=== PATIENT | female | born 1980 | race Caucasian/White ===

== ENCOUNTER 2016-11-18 21:37 | Inpatient (IN) | payer MEDICARE, OTHER ==
--- NOTE | 2016-11-18 21:41 | PDOC ---
History of Present Illness - General History Source: Patient Exam Limitations: No Limitations - History of Present Illness Initial Comments: 11/18/16 22:25 The patient is a 36 year old female, with significant past medical history of cholecystectomy (11/14/16), GERD, asthma, and tonsillectomy, who presents to the emergency department complaining of nausea, vomiting, and epgiastric/chest pain starting at 11:00am this morning. The patient had a cholecystectomy performed by Dr. Rojas and was discharged 4 days ago. The patient states that chest pain occurred 5 minutes after eating a bowl of cereal this morning. She describes the pain as sharp pressure that is constant, 6/10 in severity, and radiates to her back. The chest pain is exacerbated by lying down. She is experiencing some abdominal pain that she describes as burning. She had multiple episodes of vomiting today and is unable to tolerate any intake including fluids. Her vomiting is food contents and is nbnb. Her first bowel movement was yesterday after taking a laxative and was yellow in color. She did not have a bowel movement today. Denies SOB, cough. Denies fever, chills. Allergies: amoxicillin, penicillin, ibuprofen, guaifenesin Social Hx: No tobacco use. No alcohol use. Denies NSAID abuse, no recreational drug use. Surgeon: Dr. Rojas <Alyson Matamoros - Last Filed: 11/18/16 22:25> <Olegario Davey - Last Filed: 11/19/16 01:09> - General Chief Complaint: Nausea/Vomiting Stated Complaint: NAUSEA/VOMITING Past History <Alyson Matamoros - Last Filed: 11/18/16 22:25> - Past Medical History Asthma: Yes GI Disorders: Yes (GERD) Seizures: Yes (pesudo seizure ) - Family Disease History Family Disease History: Heart Disease: Grandparents (maternal) - Reproductive History (#): 7 Para: 1 Therapeutic (s) & number: Yes (5) - Immunization History Immunization Up to Date: Yes - Psycho/Social/Smoking Cessation Hx Anxiety: No Suicidal Ideation: No Smoking Status: No Smoking History: Never smoked Have you smoked in the past 12 months: No Number of Cigarettes Smoked Daily: 0 Hx Alcohol Use: No Drug/Substance Use Hx: No Substance Use Type: None <Olegario Davey - Last Filed: 11/19/16 01:09> - Past Medical History Allergies/Adverse Reactions: Allergies Allergy/AdvReac Type Severity Reaction Status Date / Time amoxicillin [Amoxicillin] Allergy Swelling Verified 11/13/16 19:08 guaifenesin Allergy Verified 11/13/16 19:08 Penicillins Allergy Verified 11/13/16 19:08 ibuprofen [From Motrin] AdvReac Verified 11/13/16 19:08 Home Medications: Ambulatory Orders Ranitidine [Zantac -] 150 mg PO HS 11/13/16 Oxycodone HCl/Acetaminophen [Percocet 5-325 mg Tablet] 1 tab PO Q4H PRN #30 tablet MDD 6 11/14/16 Review of Systems - Review of Systems Comments:: 11/18/16 22:25 CONSTITUTIONAL: No reported: Fever, Chills, Diaphoresis, Generalized Weakness, Malaise, Loss of Appetite HEENT: No reported: Rhinorrhea, Nasal Congestion, Throat Pain, Throat Swelling, Difficulty Swallowing, Mouth Swelling, Ear Pain, Eye Pain, Visual Changes CARDIOVASCULAR: +chest pain. No reported: Syncope, Palpitations, Irregular Heart Rate, Lightheadedness, Peripheral Edema RESPIRATORY: No reported: Cough, Shortness of Breath, SOB with Exertion, Orthopnea, Wheezing , Stridor, Hemoptysis GASTROINTESTINAL: +nausea, vomiting, abdominal pain. No reported: Abdominal Distension, Diarrhea, Constipation, Melena, Hematochezia GENITOURINARY: No reported: Dysuria, Frequency, Urgency, Hesitancy, Flank Pain, Genital Pain MUSCULOSKELETAL: No reported: Myalgia, Arthralgia, Joint Swelling, Back pain, Neck Pain SKIN: No reported: Rash, Itching, Pallor HEMEATOLOGIC/IMMUNOLOGIC: No reported: Easy Bleeding, Easy Bruising, Lymphadenopathy, Frequent infections ENDOCRINE: No reported: Unexplained Weight Gain, Unexplained Weight Loss, Heat Intolerance , Cold Intolerance NEUROLOGIC: No reported: Headache, Focal Weakness, Paresthesias, Vertigo, Lightheadedness, Unsteady Gait, Seizure, Mental Status Changes, Incontinence PSYCHIATRIC: No reported: Anxiety, Depression <Alyson Matamoros - Last Filed: 11/18/16 22:25> *Physical Exam - Vital Signs Last Vital Signs Temp Pulse Resp BP Pulse Ox 97.6 F 71 16 108/69 100 11/18/16 21:41 11/18/16 21:41 11/18/16 21:41 11/18/16 21:41 11/18/16 21:41 - Physical Exam Comments: 11/18/16 22:26 GENERAL: The patient is awake, alert, and fully oriented, Nontoxic - in no acute distress. HEAD: Normocephalic, atraumatic. EYES: extraocular movements intact, sclera anicteric, conjunctiva clear. ENT: Normal voice, Moist mucous membranes. NECK: Normal range of motion, supple LUNGS: Breath sounds equal, clear to auscultation bilaterally. No wheezes, no rhonchi, no rales. HEART: Regular rate and rhythm, without murmur, rub or gallop. ABDOMEN: mild RUQ and epigastric tenderness, no rebound/guarding, laparoscopy scars are non erythemadous without discharge/induration. EXTREMITIES: Normal range of motion, no edema. No clubbing or cyanosis. No cords , erythema, or tenderness. NEUROLOGICAL: No facial assymetry, Normal speech, moving all 4 extermities spontaneously and symmetrically. PSYCH: Normal mood, normal affect. SKIN: Warm, Dry, normal turgor. <Alyson Matamoros - Last Filed: 11/18/16 22:25> Heart Score/ECG Review - ECG Impressions Comment:: 11/18/16 22:31 Twelve-lead EKG was performed and reviewed by me. There is normal sinus rhythm with a normal rate. Rate of 73 The axis is normal. The intervals are normal. There is normal R wave progression There are no ST or T wave abnormalities. Impression: Normal twelve-lead EKG <Olegario Davey - Last Filed: 11/19/16 01:09> ED Treatment Course - LABORATORY CBC & Chemistry Diagram: 11/18/16 22:21 11/18/16 22:21 - Medications Given in the ED: ED Medications Discontinued Medications Generic Name Dose Route Start Last Admin Trade Name Freq PRN Reason Stop Dose Admin Morphine Sulfate 2 mg 11/18/16 22:05 11/18/16 22:20 Morphine Injection - IVPUSH 11/18/16 22:06 2 mg ONCE ONE Administration Ondansetron HCl 4 mg 11/18/16 22:04 11/18/16 22:20 Zofran Injection IVPB 11/18/16 22:05 4 mg ONCE ONE Administration <Alyson Matamoros - Last Filed: 11/18/16 22:25> - LABORATORY CBC & Chemistry Diagram: 11/18/16 22:21 11/18/16 22:21 <Olegario Davey - Last Filed: 11/19/16 01:09> Medical Decision Making - Medical Decision Making 11/18/16 22:18 36y F hx of gerd, asthma, 5 days post op s/p cholecystectomy presents with burning/pressure like epgiastric pain associated nbnb vomiting without fever/ chills, but pt did note she felt diaphoretic this morning w/o sob, zaidi. on exam the pt appears in no distress, vitals normal, pt did have mild tenderness in the epigastrium and ruq although pt attributes her RUQ tenderness to post op pain. differential includes pancreatitis, bile leak/post op complication, obstruction , gerd, acs will ck cbc, cmp, lipase, ua, uhcg will obtain screening ekg will give pepcid/maalox, fluids, zofran will obtain kub to r/o obstruction consider CT abd to r/o post op complication will d/w dr. Rojas A portion of this note was documented by scribe services under my direction. I have reviewed the details of the note, within reason, and agree with the documentation with the following case summary and management plan written by me 11/18/16 23:25 xray negtive for free air or signs of obstruction labs noted for marked elevation of LFTs will obtain CT abd with IV contrast 11/19/16 00:[address] abd is unremarkable pts pain has improved case d/w dr. Rojas - states that probably low utility to get an US as the patient needs ERCP and GI consultation. will admit to hospitalist service as pt does not have an PMD. 11/19/16 01:[address] Gutierrez agreed with admission and GI consultation for further evaluation of her elated LFTs. pt currently pain free.stable for med/surg. Case discussed in detail with admitting physician including history, physical exam and ancillary studies. Admitting physician has assumed care for the patient, will follow all pending diagnostics and will complete the evaluation and treatment. <Olegario Davey - Last Filed: 11/19/16 01:09> *DC/Admit/Observation/Transfer - Attestations Scribe Attestion: 11/18/16 22:26 Documentation prepared by SUZANNE Mckinney, acting as medical records administrator for Olegario Davey MD. <Alyson Matamoros - Last Filed: 11/18/16 22:25> - Discharge Dispostion Admit: Yes <Olegario Davey - Last Filed: 11/19/16 01:09> Diagnosis at time of Disposition: Elevated liver enzymes Abdominal pain Qualifiers: Abdominal location: epigastric Qualified Code(s): R10.13 - Epigastric pain - Discharge Dispostion Condition at time of disposition: Stable
[2016-11-18] MEDS ORDERED: SODIUM CHLORIDE 1,000 ML IV ONE (22:04)
[2016-11-18] MEDS ORDERED: ONDANSETRON 4 MG/2 ML VIAL IVPB ONE (22:04)
[2016-11-18] MEDS ORDERED: morphine CARPU-JECT 2 MG/1 ML DISP.SYRIN IVPUSH ONE (22:05)
[2016-11-18] MEDS ORDERED: morphine CARPU-JECT 10 MG/1 ML DISP.SYRIN ONE (22:10)
[2016-11-18] MEDS ORDERED: ONDANSETRON 4 MG/2 ML VIAL ONE (22:10)
[2016-11-18] MEDS ORDERED: FAMOTIDINE 20 MG/50 ML IVPB 50 ML IVPB ONE ×2 (22:28→22:29)
[2016-11-18] MEDS ORDERED: MAG HYDROX/AL HYDROX/SIMETH 355 ML ORAL.SUSP PO ONE (22:28)
[2016-11-18] MEDS ORDERED: MAG HYDROX/AL HYDROX/SIMETH 30 ML UNIT-DOSE CUP ONE (22:30)
[2016-11-18 22:31] LABS: BASOPHIL 0.2 % (0-2.0); EOSINOPHIL 0.5 % (0-4.5); MCH 28.4 pg (25.7-33.7); MCHC 33.6 g/dl (32.0-36.0); MEAN CELL VOLUME 84.4 fl (80-96); MEAN PLT VOLUME 8.1 fl (7.5-11.1); NEUTROPHILS 76.2 % (42.8-82.8); PLATELET COUNT 301 K/MM3 (134-434); RDW 12.5 % (11.6-15.6); WHITE BLOOD COUNT 5.3 K/mm3 (4.0-10.0)
[2016-11-18 22:33] LABS: PH,URINE 7.5 (4.5-8); URINE APPEARANCE Clear; URINE BILIRUBIN 2+ (NEGATIVE); URINE BLOOD Negative (NEGATIVE); URINE GLUCOSE (UA) Negative (NEGATIVE); URINE KETONE Negative (NEGATIVE); URINE LEUK ESTERASE Negative (NEGATIVE); URINE NITRITE Negative (NEGATIVE); URINE UROBILINOGEN >=8.0 E.U./dl (0.2-1.0)
[2016-11-18 22:38] LABS: URINE COLOR YELLOW; URINE PROTEIN 2+ (NEGATIVE)
[2016-11-18 22:43] LABS: ALBUMIN 4.3 g/dl (3.5-5.0); ALK PHOS 255 U/L (32-92); ANION GAP 7 (8-16); BILIRUBIN,TOTAL 2.5 mg/dl (0.2-1.0); CALCIUM 9.2 mg/dl (8.4-10.2); CO2 25 mmol/L (22-28); CREATININE 0.7 mg/dl (0.6-1.3); GLUCOSE,RANDOM 136 mg/dl (74-106); TOT PROT 7.6 g/dl (6.4-8.3)
[2016-11-18 22:53] LABS: URINE RBC 0-2 /hpf (0-3)
[2016-11-18 22:54] LABS: URINE BACTERIA FEW /hpf (NEGATIVE)
[2016-11-18 23:20] LABS: SGOT/AST 1420 U/L (10-42)
[2016-11-18 23:21] LABS: SGPT/ALT 1240 U/L (10-40)
[2016-11-19 02:36] VITALS: BMI 32.7
[2016-11-19] MEDS: PANTOPRAZOLE 40 MG TABLET (FP) PO SCH (09:31)
[2016-11-19] MEDS: SODIUM CHLORIDE 1,000 ML IV SCH (09:32)
--- NOTE | 2016-11-19 11:59 | HP ---
CHIEF COMPLAINT: Abdominal pain PCP: None HISTORY OF PRESENT ILLNESS: This is a 36 year old female with a history of mild intermittent asthma and GERD, POD #5 s/p cholecystectomy with Dr. Rojas. She presented to the ED last night complaining of epigastric pain and vomiting. She initially ate only clear liquids post-op, but ate a "small amount" of rice and steamed fish yesterday prior to the onset of symptoms. 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 Smoking: None Alcohol: Rarely Family History: Non-contributory Allergies amoxicillin [Amoxicillin] Allergy (Verified 11/13/16 19:08) Swelling guaifenesin Allergy (Verified 11/13/16 19:08) Penicillins Allergy (Verified 11/13/16 19:08) ibuprofen [From Motrin] Adverse Reaction (Verified 11/13/16 19:08) PT STATES CANT TAKE BECAUSE OF GERD HOME MEDICATIONS: Home Medications Medication Instructions Recorded Ranitidine [Zantac -] 150 mg PO HS 11/13/16 Oxycodone HCl/Acetaminophen 1 tab PO Q4H PRN #30 tablet MDD 6 11/14/16 [Percocet 5-325 mg Tablet] REVIEW OF SYSTEMS CONSTITUTIONAL: Diaphoretic with pain/vomiting Absent: fever, chills, generalized weakness, malaise, loss of appetite, weight change HEENT: Absent: rhinorrhea, nasal congestion, throat pain, throat swelling, difficulty swallowing, mouth swelling, ear pain, eye pain, visual changes CARDIOVASCULAR: Absent: chest pain, syncope, palpitations, irregular heart rate, lightheadedness , peripheral edema RESPIRATORY: Absent: cough, shortness of breath, dyspnea with exertion, orthopnea, wheezing, stridor, hemoptysis GASTROINTESTINAL: See HPI GENITOURINARY: Absent: dysuria, frequency, urgency, hesitancy, hematuria, flank pain, genital pain MUSCULOSKELETAL: Absent: myalgia, arthralgia, joint swelling, back pain, neck pain SKIN: Absent: rash, itching, pallor HEMATOLOGIC/IMMUNOLOGIC: Absent: easy bleeding, easy bruising, lymphadenopathy, frequent infections ENDOCRINE: Absent: unexplained weight gain, unexplained weight loss, heat intolerance, cold intolerance NEUROLOGIC: Absent: headache, focal weakness or paresthesias, dizziness, unsteady gait, seizure, mental status changes, bladder or bowel incontinence PSYCHIATRIC: Absent: anxiety, depression, suicidal or homicidal ideation, hallucinations. PHYSICAL EXAMINATION Vital Signs - 24 hr 11/19/16 06:43 Temperature 98.0 F Pulse Rate 65 Respiratory 18 Rate Blood Pressure 111/80 GENERAL: Awake, alert, and fully oriented, in no acute distress. HEAD: Normal with no signs of trauma. EYES: Pupils equal, round and reactive to light, extraocular movements intact, sclera anicteric, conjunctiva clear. No lid lag. EARS, NOSE, THROAT: Ears normal, nares patent, oropharynx clear without exudates. Moist mucous membranes. NECK: Normal range of motion, supple without lymphadenopathy, JVD, or masses. LUNGS: Breath sounds equal, clear to auscultation bilaterally. No wheezes, and no crackles. No accessory muscle use. HEART: Regular rate and rhythm, normal S1 and S2 without murmur, rub or gallop. ABDOMEN: Soft, tender to gentle palpation in epigastrium/RUQ, normoactive bowel sounds, no guarding, no rebound, no masses. No hepatomegaly or splenomegaly. Surgical incisions clean/dry/intact. MUSCULOSKELETAL: Normal range of motion at all joints. No bony deformities or tenderness. No CVA tenderness. UPPER EXTREMITIES: 2+ pulses, warm, well-perfused. No cyanosis. No clubbing. Cap refill <2 seconds. No peripheral edema. LOWER EXTREMITIES: 2+ pulses, warm, well-perfused. No calf tenderness. No peripheral edema. NEUROLOGICAL: Cranial nerves II-XII intact. Normal speech. Normal gait. PSYCHIATRIC: Cooperative. Good eye contact. Appropriate mood and affect. SKIN: Warm, dry, normal turgor, no rashes or lesions noted. ASSESSMENT/PLAN: 36 year old female recently s/p cholecystectomy with abdominal pain, vomiting, and elevated LFTs. 1. GI: Abd pain/vomiting/abnormal LFTs post cholecystectomy -For MRCP today -Surgical consult -Continue standing Pepcid, hydromorphone prn -Zofran prn nausea -Clear liquids -Follow LFts 2. Pulm: Asthma -No active issues 3. Ppx -OOB Dispo: Obs pending MRCP results. If needs ERCP, will need tx to [facility]. Problem List - Problem (1) Abdominal pain Code(s): R10.9 - UNSPECIFIED ABDOMINAL PAIN Qualifiers: Abdominal location: epigastric Qualified Code(s): R10.13 - Epigastric pain (2) Elevated liver enzymes Code(s): R74.8 - ABNORMAL LEVELS OF OTHER SERUM ENZYMES (3) Asthma Code(s): J45.909 - UNSPECIFIED ASTHMA, UNCOMPLICATED (4) DVT prophylaxis Code(s): JJO6289 - Visit type - Emergency Visit Emergency Visit: Yes ED Registration Date: 11/19/16 Care time: The patient presented to the Emergency Department on the above date and was hospitalized for further evaluation of their emergent condition. - New Patient This patient is new to me today: Yes Date on this admission: 11/19/16 - Critical Care Critical Care patient: No
--- NOTE | 2016-11-19 12:47 | CONSULT ---
Consult Consult Specialty:: Surgery- Dr. Rojas Reason for Consultation:: elevated LFTs and abd pain after laparoscopic cholecystectomy - History of Present Illness Chief Complaint: nausea, vomiting, and RUQ/epigastric pain x1 day History of Present Illness: 36 yo F with nausea, vomiting, and RUQ/epigastric pain x1 day. The patient had a laparoscopic cholecystectomy with Dr. Rojas on 11/14/16. Patient states she was recovering well, abdominal pain was controlled postoperatively until yesterday at 11:30 AM when she developed severe, sharp, constant, epigastric abdominal pain after eating cereal. She tried to take oxycodone for the pain yesterday, but this did not help. The patient also became nauseous and had several episodes of vomiting. She was unable to tolerate anything PO. Throughout the week she had been eating mostly broth, some rice and chicken, states she became full quickly, but did not have N/V until yesterday. Her last BM was and was yellow and soft. - History Source History Provided By: Patient Limitations to Obtaining History: No Limitations - Past Medical History Pulmonary: Yes: Asthma Gastrointestinal: Yes: GERD Hepatobiliary: Yes: Cholecystitis (s/p lap khushboo 11/14/16 for acute cholecystitis ) - Past Surgical History Past Surgical History: Yes: Cholecystectomy, Tonsillectomy - Alcohol/Substance Use Hx Alcohol Use: No - Smoking History Smoking history: Never smoked Have you smoked in the past 12 months: No Aproximately how many cigarettes per day: 0 Home Medications - Allergies Allergies/Adverse Reactions: Allergies Allergy/AdvReac Type Severity Reaction Status Date / Time amoxicillin [Amoxicillin] Allergy Swelling Verified 11/13/16 19:08 guaifenesin Allergy Verified 11/13/16 19:08 Penicillins Allergy Verified 11/13/16 19:08 ibuprofen [From Motrin] AdvReac Verified 11/13/16 19:08 - Home Medications Home Medications: Ambulatory Orders Ranitidine [Zantac -] 150 mg PO HS 11/13/16 Oxycodone HCl/Acetaminophen [Percocet 5-325 mg Tablet] 1 tab PO Q4H PRN #30 tablet MDD 6 11/14/16 Review of Systems - Review of Systems Constitutional: denies: Chills, Fever Cardiovascular: denies: Palpitations, Shortness of Breath Respiratory: denies: Cough, SOB Gastrointestinal: reports: Abdominal Pain, Nausea, Vomiting Genitourinary: denies: Burning, Dysuria Musculoskeletal: denies: Extremity Pain Neurological: denies: Dizziness, Headache Physical Exam Vital Signs: Vital Signs Temperature 98.0 F 11/19/16 06:43 Pulse Rate 65 11/19/16 06:43 Respiratory Rate 18 11/19/16 06:43 Blood Pressure 111/80 11/19/16 06:43 O2 Sat by Pulse Oximetry (%) 99 11/19/16 01:18 Constitutional: Yes: Well Nourished, No Distress Eyes: Yes: Conjunctiva Clear HENT: Yes: Atraumatic, Normocephalic Cardiovascular: Yes: Regular Rate and Rhythm Respiratory: Yes: CTA Bilaterally Gastrointestinal: Yes: Soft, Tenderness (Tenderness with palp in epigastric region, mild tenderness with palp RUQ), Tenderness, Epigastrium. No: Distention Extremities: Yes: WNL Integumentary: Yes: Incision (port site incisions healing well, c/d/i) Wound/Incision: Yes: Clean/Dry, Well Approximated Neurological: Yes: Alert, Oriented Labs: CBC, BMP 11/18/16 22:21 11/18/16 22:21 Hepatic Panel Total Bilirubin 2.5 mg/dl (0.2-1.0) H D 11/18/16 22:21 Direct Bilirubin 1.3 mg/dL (0.0-0.2) H 11/18/16 22:21 AST 1420 U/L (10-42) H 11/18/16 22:21 ALT 1240 U/L (10-40) H D 11/18/16 22:21 Alkaline Phosphatase 255 U/L (32-92) H D 11/18/16 22:21 Albumin 4.3 g/dl (3.5-5.0) 11/18/16 22:21 Imaging - Results Cat Scan: Report Reviewed Problem List - Problems (1) Abdominal pain Code(s): R10.9 - UNSPECIFIED ABDOMINAL PAIN Qualifiers: Abdominal location: epigastric Qualified Code(s): R10.13 - Epigastric pain (2) Elevated liver enzymes Code(s): R74.8 - ABNORMAL LEVELS OF OTHER SERUM ENZYMES Assessment/Plan POD#5 s/p laparoscopic cholecystectomy Abdominal pain, nausea, vomiting x1 day Elevated LFTs Patient discussed with Dr. Rojas GI consult, MRCP, possible ERCP Follow LFTs continue NPO, IV fluids Pain control Nausea control with IV antiemetics GI prophylaxis
[2016-11-19] MEDS: HYDROmorphone HCL CARPU-JECT 1 MG/1 ML DISP.SYRIN IVPB PRN ×2 (12:48→21:40)
[2016-11-19] MEDS: ONDANSETRON 4 MG/2 ML VIAL IVPB PRN ×2 (17:22→23:00)
[2016-11-19] MEDS ORDERED: HYDROmorphone HCL CARPU-JECT 1 MG/1 ML DISP.SYRIN IVPUSH ONE (22:07)
[2016-11-20] MEDS: HYDROmorphone HCL CARPU-JECT 1 MG/1 ML DISP.SYRIN IVPB PRN ×4 (04:06→21:17)
[2016-11-20] MEDS: ONDANSETRON 4 MG/2 ML VIAL IVPB PRN ×3 (04:29→16:56)
--- NOTE | 2016-11-20 07:31 | EKG ---
Test Reason : Blood Pressure : / mmHG Vent. Rate : 073 BPM Atrial Rate : 073 BPM P-R Int : 152 ms QRS Dur : 076 ms QT Int : 408 ms P-R-T Axes : 026 016 021 degrees QTc Int : 449 ms NORMAL SINUS RHYTHM NORMAL ECG WHEN COMPARED WITH ECG OF 13-NOV-2016 19:08, NO SIGNIFICANT CHANGE WAS FOUND Confirmed by ODETTE KONG MD ([id number]) on 11/20/2016 7:31:24 AM Referred By: MD DIXON Confirmed By:ODETTE KONG MD
--- NOTE | 2016-11-20 08:43 | PN ---
[id number]: Tbili today is 4.1 (from 2.5), AST/ALT 1350/1850 (from 1420/1240 ), Alk phos 317 (from 255), lipase 2820 (from 31). Vital Signs Period Temp Pulse Resp BP Sys/Grace Pulse Ox Last 24 Hr 97.9 F-98.6 F 64-71 17-18 103-114/65-82 95-97 GENERAL: The patient is awake, alert, and fully oriented, in some distress secondary to pain. EYES: PERRL, extraocular movements intact, sclera anicteric, conjunctiva clear. No ptosis. ENT: Ears normal, nares patent, oropharynx clear without exudates, moist mucous membranes. NECK: Trachea midline, full range of motion, supple. LUNGS: Breath sounds equal, clear to auscultation bilaterally, no wheezes, no crackles, no accessory muscle use. HEART: Regular rate and rhythm, S1, S2 without murmur, rub or gallop. ABDOMEN: Soft, tender to gentle palpation in LUQ, epigastrium, RUQ, mildly distended, normoactive bowel sounds, no guarding, no rebound, no hepatosplenomegaly, no masses. EXTREMITIES: 2+ pulses, warm, well-perfused, no edema. NEUROLOGICAL: Cranial nerves II through XII grossly intact. Normal speech, gait not observed. PSYCH: Normal mood, normal affect. SKIN: Warm, dry, normal turgor, no rashes or lesions noted Active Medications Generic Name Dose Route Start Last Admin Trade Name Freq PRN Reason Stop Dose Admin Hydromorphone HCl 1 mg 11/20/16 08:23 Dilaudid Injection - IVPB Q4H PRN PAIN Sodium Chloride 1,000 mls @ 125 mls/hr 11/19/16 01:00 11/19/16 09:32 Normal Saline - IV 125 mls/hr ASDIR LAQUITA Administration Ondansetron HCl 4 mg 11/19/16 00:59 11/20/16 04:29 Zofran Injection IVPB 4 mg Q6H PRN Administration NAUSEA Pantoprazole Sodium 40 mg 11/19/16 10:00 11/19/16 09:31 Protonix - PO 40 mg DAILY LAQUITA Administration ASSESSMENT/PLAN: 36 year old female recently s/p cholecystectomy with abdominal pain, vomiting, elevated LFTs, and elevated lipase. 1. GI: Abd pain/vomiting/abnormal LFTs post cholecystectomy -Discussed with director of campus recreation- will transfer to [facility] for MRCP at 3pm today -Continue hydromorphone prn pain -Zofran prn nausea -NPO -GI unavailable here at [facility]- will consult at [facility] -Follow LFTs/lipase 2. Pulm: Asthma -No active issues 3. Ppx -OOB Dispo: Transfer to [facility] for MRCP, GI consult. Signed out to Dr. Lester. Discussed with Dr. Smith. Problem List - Problems (1) Abdominal pain Code(s): R10.9 - UNSPECIFIED ABDOMINAL PAIN Qualifiers: Abdominal location: epigastric Qualified Code(s): R10.13 - Epigastric pain (2) Elevated liver enzymes Code(s): R74.8 - ABNORMAL LEVELS OF OTHER SERUM ENZYMES (3) Asthma Code(s): J45.909 - UNSPECIFIED ASTHMA, UNCOMPLICATED (4) DVT prophylaxis Code(s): [id number] - Visit type - Emergency Visit Emergency Visit: Yes ED Registration Date: 11/19/16 Care time: The patient presented to the Emergency Department on the above date and was hospitalized for further evaluation of their emergent condition. - New Patient This patient is new to me today: No - Critical Care Critical Care patient: No
[2016-11-20] MEDS: PANTOPRAZOLE 40 MG TABLET (FP) PO SCH (09:32)
[2016-11-20 09:52] LABS: BASOPHIL 0.7 % (0-2.0); EOSINOPHIL 0.6 % (0-4.5); MCHC 32.7 g/dl (32.0-36.0); MEAN CELL VOLUME 85.6 fl (80-96); MEAN PLT VOLUME 8.4 fl (7.5-11.1); NEUTROPHILS 84.7 % (42.8-82.8); PLATELET COUNT 306 K/MM3 (134-434); RDW 13.3 % (11.6-15.6); WHITE BLOOD COUNT 6.9 K/mm3 (4.0-10.0)
[2016-11-20 10:05] LABS: ALBUMIN 3.9 g/dl (3.5-5.0); ANION GAP 9 (8-16); BILIRUBIN,TOTAL 4.1 mg/dl (0.2-1.0); CO2 21 mmol/L (22-28); CREATININE 0.8 mg/dl (0.6-1.3); GLUCOSE,RANDOM 103 mg/dl (74-106); TOT PROT 6.9 g/dl (6.4-8.3)
[2016-11-20 10:06] LABS: ALK PHOS 317 U/L (32-92)
[2016-11-20 10:29] LABS: SGOT/AST 1350 U/L (10-42); SGPT/ALT 1850 U/L (10-40)
[2016-11-20] MEDS ORDERED: HYDROmorphone HCL CARPU-JECT 1 MG/1 ML DISP.SYRIN IVPB ONE (11:57)
[2016-11-20] MEDS: SODIUM CHLORIDE 1,000 ML IV SCH (15:00)
--- NOTE | 2016-11-20 16:43 | CON.GI ---
Consult Consult Specialty:: Gastroenterology Referred by:: Selma Alexandre NP Reason for Consultation:: Abdominal pain , biliary pancreatitis - History of Present Illness Chief Complaint: Abdominal pain 3 days ago cholecystectomy History of Present Illness: 36W presented to [facility] ER with c/o severe RUQ pain radiating to the back. She had undergone a lap choly with Dr Mendoza Rojas on 11/14/16. This pain began on the evening of 11/17. While at [facility] the pain has shifted to the LUQ and corresponds with the development of pancreatitis. She had no previous hepatic problems. She was diagnosed with laryngeal reflux by an ENT. - History Source History Provided By: Patient Limitations to Obtaining History: No Limitations - Past Medical History Pulmonary: Yes: Asthma Gastrointestinal: Yes: GERD Hepatobiliary: Yes: Cholecystitis (s/p lap khushboo 11/14/16 for acute cholecystitis ) - Past Surgical History Past Surgical History: Yes: Cholecystectomy, Tonsillectomy - Alcohol/Substance Use Hx Alcohol Use: No - Smoking History Smoking history: Never smoked Have you smoked in the past 12 months: No Aproximately how many cigarettes per day: 0 - Social History Usual Living Arrangement: With Significant Other ADL: Independent 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 Place of : [facility] History of Recent Travel: No Home Medications - Allergies Allergies/Adverse Reactions: Allergies Allergy/AdvReac Type Severity Reaction Status Date / Time amoxicillin [Amoxicillin] Allergy Swelling Verified 11/13/16 19:08 guaifenesin Allergy Verified 11/13/16 19:08 Penicillins Allergy Verified 11/13/16 19:08 ibuprofen [From Motrin] AdvReac Verified 11/13/16 19:08 - Home Medications Home Medications: Ambulatory Orders Ranitidine [Zantac -] 150 mg PO HS 11/13/16 Oxycodone HCl/Acetaminophen [Percocet 5-325 mg Tablet] 1 tab PO Q4H PRN #30 tablet MDD 6 11/14/16 Family Disease History - Family Disease History Family Disease History: CA: Mother (thyroid cancer), Other: Father ( hyperlipidemia) Review of Systems - Review of Systems Constitutional: reports: Chills, Loss of Appetite Eyes: reports: No Symptoms HENT: reports: No Symptoms Neck: reports: No Symptoms Cardiovascular: reports: No Symptoms Respiratory: reports: No Symptoms Gastrointestinal: reports: Abdominal Pain, Bloating, Constipation, Nausea, Vomiting Genitourinary: reports: No Symptoms Musculoskeletal: reports: No Symptoms Neurological: reports: No Symptoms Physical Exam-GI Vital Signs: Vital Signs Temperature 98.6 F 11/20/16 04:00 Pulse Rate 71 11/20/16 04:00 Respiratory Rate 17 11/20/16 04:00 Blood Pressure 106/65 11/20/16 04:00 O2 Sat by Pulse Oximetry (%) 97 11/20/16 15:09 Current Medications Generic Name Dose Route Start Last Admin Trade Name Freq PRN Reason Stop Dose Admin Hydromorphone HCl 1 mg 11/20/16 08:23 11/20/16 16:40 Dilaudid Injection - IVPB 1 mg Q4H PRN Administration PAIN Sodium Chloride 1,000 mls @ 125 mls/hr 11/19/16 01:00 11/20/16 15:00 Normal Saline - IV 125 mls/hr ASDIR LAQUITA Administration Ondansetron HCl 4 mg 11/19/16 00:59 11/20/16 09:32 Zofran Injection IVPB 4 mg Q6H PRN Administration NAUSEA Pantoprazole Sodium 40 mg 11/19/16 10:00 11/20/16 09:32 Protonix - PO 40 mg DAILY LAQUITA Administration CBC,CMP WBC 6.9 K/mm3 (4.0-10.0) D 11/20/16 07:00 RBC 5.13 M/mm3 (3.60-5.2) 11/20/16 07:00 Hgb 14.4 GM/dl (10.7-15.3) 11/20/16 07:00 Hct 43.9 % (32.4-45.2) 11/20/16 07:00 MCV 85.6 fl (80-96) 11/20/16 07:00 MCHC 32.7 g/dl (32.0-36.0) 11/20/16 07:00 RDW 13.3 % (11.6-15.6) 11/20/16 07:00 Plt Count 306 K/MM3 (134-434) 11/20/16 07:00 MPV 8.4 fl (7.5-11.1) 11/20/16 07:00 Neutrophils % 84.7 % (42.8-82.8) H 11/20/16 07:00 Lymphocytes % 9.7 % (8-40) D 11/20/16 07:00 Monocytes % 4.3 % (3.8-10.2) 11/20/16 07:00 Eosinophils % 0.6 % (0-4.5) 11/20/16 07:00 Basophils % 0.7 % (0-2.0) D 11/20/16 07:00 Sodium 136 mmol/L (136-145) 11/20/16 07:00 Potassium 4.0 mmol/L (3.5-5.1) 11/20/16 07:00 Chloride 106 mmol/L (98-107) 11/20/16 07:00 Carbon Dioxide 21 mmol/L (22-28) L 11/20/16 07:00 Anion Gap 9 (8-16) 11/20/16 07:00 BUN 8 mg/dl (7-18) D 11/20/16 07:00 Creatinine 0.8 mg/dl (0.6-1.3) 11/20/16 07:00 Creat Clearance w eGFR > 60 (>60) 11/20/16 07:00 Random Glucose 103 mg/dl (74-106) D 11/20/16 07:00 Calcium 9.0 mg/dl (8.4-10.2) 11/20/16 07:00 Total Bilirubin 4.1 mg/dl (0.2-1.0) H D 11/20/16 07:00 Direct Bilirubin 1.3 mg/dL (0.0-0.2) H 11/18/16 22:21 AST 1350 U/L (10-42) H 11/20/16 07:00 ALT 1850 U/L (10-40) H D 11/20/16 07:00 Alkaline Phosphatase 317 U/L (32-92) H D 11/20/16 07:00 Total Protein 6.9 g/dl (6.4-8.3) 11/20/16 07:00 Albumin 3.9 g/dl (3.5-5.0) 11/20/16 07:00 Lipase 2820 U/L (22-51) H 11/20/16 07:00 Constitutional: Yes: Anxious Eyes: Yes: Sclera Icterus HENT: Yes: Normocephalic Neck: Yes: Supple Cardiovascular: Yes: Regular Rate and Rhythm Respiratory: Yes: CTA Bilaterally Gastrointestinal Inspection: Yes: Distention, Scars (fresh healing laparoscopic incisions) ...Auscultate: Yes: Hypoactive Bowel Sounds ...Palpate: Yes: Tenderness (left upper quadrant), Tenderness, Epigastium ...Percussion: Yes: Tympanitic ...Rectal Exam: Yes: Deferred Labs: CBC, BMP 11/20/16 07:00 11/20/16 07:00 Imaging - Results Cat Scan: Report Reviewed (no pancreatitis was as yet seen) MRI: Image Reviewed (no obvious cbd stone) Problem List - Problems (1) Biliary acute pancreatitis Code(s): K85.1 - BILIARY ACUTE PANCREATITIS * DO NOT USE * Assessment/Plan Lamar appears to have had biliary colic on 11/17 with RUQ pain but now has developed biliary pancreatitis. Despite lack of obvious stone on MRCP ( unofficial reading by me) the jaundice suggests there is a residual obstruting stone. I have therefore discussed the likely need for an ERCP, sphincterotomy and stone extraction or stent insertion. I have discussed 5-15% chance of ERCP associated complications including hemorrhage, perforation and ERCP induced pancreatitis leading to multiorgan failure. Lamar has granted an informed consent. I will prepare to do it tomorrow but await an official MRCP reading. I have ordered blood cultures and antibiotics and brisk fluid resuscitation.
[2016-11-20] MEDS ORDERED: LEVOFLOXACIN 500 MG IVPB 100 ML IVPB ONE (16:46)
[2016-11-20] MEDS ORDERED: LACTATED RINGERS SOLUTION 1,000 ML IV SCH ×2 (17:00→23:00)
[2016-11-20] MEDS: METRONIDAZOLE 500 MG PREMIXED 100 ML IVPB SCH (17:32)
[2016-11-21] MEDS: HYDROmorphone HCL CARPU-JECT 1 MG/1 ML DISP.SYRIN IVPB PRN ×4 (02:14→21:44)
[2016-11-21] MEDS: METRONIDAZOLE 500 MG PREMIXED 100 ML IVPB SCH ×3 (03:24→17:42)
[2016-11-21] MEDS: LACTATED RINGERS SOLUTION 1,000 ML IV SCH ×3 (05:00→23:29)
[2016-11-21 07:44] LABS: INR 1.26 (0.82-1.09); PROTHROMBIN TIME (PATIENT) 13.9 SEC (9.98-11.88)
[2016-11-21 08:22] LABS: ALBUMIN 3.4 g/dl (3.4-5.0); BILIRUBIN,DIRECT 0.4 mg/dL (0.0-0.2); C-REACTIVE PROTEIN 2.2 MG/DL (0.00-0.3); TOT PROT 6.4 g/dl (6.4-8.2)
[2016-11-21 08:49] LABS: ALBUMIN 3.4 g/dl (3.4-5.0); CALCIUM 8.4 mg/dL (8.5-10.1)
[2016-11-21 09:01] LABS: ALK PHOS 322 U/L (45-117); ANION GAP 11 (8-16); CO2 23 mmol/L (21-32); CREATININE 0.6 mg/dL (0.55-1.02); GLUCOSE,RANDOM 62 mg/dL (74-106); SGOT/AST 318 U/L (15-37); TOT PROT 6.3 g/dl (6.4-8.2)
[2016-11-21 09:14] LABS: SGPT/ALT 1241 U/L (12-78)
[2016-11-21 09:15] LABS: BASOPHIL 0.2 % (0-2.0); EOSINOPHIL 1.9 % (0-4.5); MCH 28.3 pg (25.7-33.7); MCHC 32.9 g/dl (32.0-36.0); MEAN PLT VOLUME 8.1 fl (7.5-11.1); PLATELET COUNT 203 K/MM3 (134-434); RDW 13.6 % (11.6-15.6)
[2016-11-21] MEDS: PANTOPRAZOLE 40 MG TABLET (FP) PO SCH (09:36)
--- NOTE | 2016-11-21 09:48 | PN ---
Progress Note (short form) - Note Progress Note: GI Note: Discussed MRCP with DR Espinoza. There is no stone in the CBD . It apperas to have passed, LFTs are normalizing and pain is resolving. Will cancel ERCP and try clear liquids. Problem List - Problems (1) Biliary acute pancreatitis Code(s): K85.1 - BILIARY ACUTE PANCREATITIS * DO NOT USE *
--- NOTE | 2016-11-21 11:04 | PN ---
Progress Note, Physician Chief Complaint: luq pain History of Present Illness: pt with pain that has migrated to LUQ . Bilirubin now 1.0. LFTs about the same. per GI note MRCP shows no CBD stone. - Current Medication List Current Medications: Active Medications Hydromorphone HCl (Dilaudid Injection -) 1 mg IVPB Q4H PRN PRN Reason: PAIN Last Admin: 11/21/16 10:44 Dose: 1 mg Metronidazole (Flagyl 500mg Premixed Ivpb -) 100 mls @ 100 mls/hr IVPB Q8H-IV LAQUITA Last Admin: 11/21/16 09:36 Dose: 100 mls/hr Lactated Ringer's (Lactated Ringers Solution) 1,000 mls @ 150 mls/hr IV ASDIR LAQUITA Last Admin: 11/21/16 05:00 Dose: 150 mls/hr Ondansetron HCl (Zofran Injection) 4 mg IVPB Q6H PRN PRN Reason: NAUSEA Last Admin: 11/20/16 16:56 Dose: 4 mg Pantoprazole Sodium (Protonix -) 40 mg PO DAILY LAQUITA Last Admin: 11/21/16 09:36 Dose: Not Given - Objective Vital Signs: Vital Signs Temperature 98.8 F 11/21/16 04:00 Pulse Rate 86 11/21/16 04:00 Respiratory Rate 18 11/21/16 04:00 Blood Pressure 103/68 11/21/16 04:00 O2 Sat by Pulse Oximetry (%) 97 11/20/16 21:00 Constitutional: Yes: No Distress Gastrointestinal: Yes: Soft, Tenderness (luq/epigastric region). No: Distention Labs: CBC, BMP 11/21/16 06:05 11/21/16 06:05 INR, PTT INR 1.26 (0.82-1.09) H D 11/21/16 06:05 Problem List - Problems (1) Abdominal pain Code(s): R10.9 - UNSPECIFIED ABDOMINAL PAIN Qualifiers: Abdominal location: epigastric Qualified Code(s): R10.13 - Epigastric pain (2) Biliary acute pancreatitis Assessment/Plan: s/p lap khushboo doubt CBD injury as bilirubin improving, CT didn't show hugely dilated ducts. doubt bile leak as CT didn't show huge fluid collection leaves possibility of CBD stone. while MRCP didn't show stone, if pain fails to improve to acceptable levels may still need ERCP. I agree with holding off on ERCP for now as labs improved and it seems that risks outweight benefits for now. Code(s): K85.1 - BILIARY ACUTE PANCREATITIS * DO NOT USE * (3) Elevated liver enzymes Code(s): R74.8 - ABNORMAL LEVELS OF OTHER SERUM ENZYMES
--- NOTE | 2016-11-21 17:56 | PN ---
Physical Exam: SUBJECTIVE: Patient seen and examined. She states she feels better but still having LUQ pain relieved with pain medications. Denies any chest pain or shortness of breath. OBJECTIVE: Vital Signs Period Temp Pulse Resp BP Sys/Grace Pulse Ox Last 24 Hr 98 F-98.8 F 82-89 18-20 97-120/58-77 97-97 GENERAL: The patient is awake, alert, and fully oriented, in no acute distress. HEAD: Normal with no signs of trauma. EYES: PERRL, extraocular movements intact, sclera anicteric, conjunctiva clear. No ptosis. ENT: Ears normal, nares patent, oropharynx clear without exudates, moist mucous membranes. NECK: Trachea midline, full range of motion, supple. LUNGS: Breath sounds equal, clear to auscultation bilaterally, no wheezes, no crackles, no accessory muscle use. HEART: Regular rate and rhythm, ABDOMEN: Soft, nontender, nondistended, normoactive bowel sounds, + LUQ 6/10 pain EXTREMITIES: 2+ pulses, warm, well-perfused, no edema. NEUROLOGICAL: Normal speech, gait not observed. PSYCH: Normal mood, normal affect. SKIN: Warm, dry, normal turgor, no rashes or lesions noted Laboratory Results - last 24 hr 11/21/16 11/21/16 11/21/16 06:05 06:05 06:05 WBC 7.0 RBC 4.55 Hgb 12.9 Hct 39.2 MCV 86.0 MCHC 32.9 RDW 13.6 Plt Count 203 D MPV 8.1 Neutrophils % 68.0 Lymphocytes % 23.6 Monocytes % 5.9 Eosinophils % 1.9 Basophils % 0.2 INR Sodium 139 Potassium 3.8 Chloride 105 Carbon Dioxide 23 Anion Gap 11 BUN 9 D Creatinine 0.6 D Creat Clearance w eGFR > 60 Random Glucose 62 L D Calcium 8.4 L Total Bilirubin 1.0 D 1.0 Direct Bilirubin 0.4 H D AST 318 H D 311 H ALT 1241 H D 1269 H Alkaline Phosphatase 322 H D 312 H C-Reactive Protein 2.2 H Total Protein 6.3 L 6.4 Albumin 3.4 3.4 Total Amylase 280 H Lipase 925 H 11/21/16 06:05 WBC RBC Hgb Hct MCV MCHC RDW Plt Count MPV Neutrophils % Lymphocytes % Monocytes % Eosinophils % Basophils % INR 1.26 H D Sodium Potassium Chloride Carbon Dioxide Anion Gap BUN Creatinine Creat Clearance w eGFR Random Glucose Calcium Total Bilirubin Direct Bilirubin AST ALT Alkaline Phosphatase C-Reactive Protein Total Protein Albumin Total Amylase Lipase Active Medications Generic Name Dose Route Start Last Admin Trade Name Freq PRN Reason Stop Dose Admin Hydromorphone HCl 1 mg 11/20/16 08:23 11/21/16 14:53 Dilaudid Injection - IVPB 1 mg Q4H PRN Administration PAIN Metronidazole 100 mls @ 100 mls/hr 11/20/16 18:00 11/21/16 17:42 Flagyl 500mg Premixed Ivpb - IVPB 100 mls/hr Q8H-IV LAQUITA Administration Lactated Ringer's 1,000 mls @ 150 mls/hr 11/21/16 05:00 11/21/16 13:50 Lactated Ringers Solution IV 150 mls/hr ASDIR LAQUITA Administration Ondansetron HCl 4 mg 11/19/16 00:59 11/20/16 16:56 Zofran Injection IVPB 4 mg Q6H PRN Administration NAUSEA Pantoprazole Sodium 40 mg 11/19/16 10:00 11/21/16 09:36 Protonix - PO Not Given DAILY LAQIUTA ASSESSMENT/PLAN: Patient is a 36 year old female who had a recent lap. cholecystectomy on [address] Rojas and was discharged. She presented to the ER on 11/19/2016 with complaints of nausea, vomiting, and epgiastric pain. She describes the pain as sharp pressure that is constant, 6/10 in severity, and radiates to her back, relieved with pain meds. She denies any nausea/vomiting or diarrhea. Her other history includes GERD, asthma, and tonsillectomy. On this admission her labs revealed: AST/ALT (AST 1420-311, ALT 2448-3713), Amylase (280), Lipase (231>2820>925) Imaging: CT abdomen/pelvis 11/20/2016: s/p choleystectomy, no SBO GI: Abdominal pain - s/p lap. cholecystectomy Assessment/Plan: As per GI note, no stone in CBD, monitor LFTs ERCP cancelled for now, on clear liquid diet No stone in MRCP, but still having abdominal pain, monitor for improvement of symptoms GI following Repeat labs in a.m. Pulmonary Asthma - chronic Assessment/Plan: No in exacerbation F.E.N. Fluids: LR @ 150cc/hr Electrolytes: within normal limits Nutrition: Clears Prophylaxis: GI: Zofran, Protonix 40mg daily DVT: active ambulation, SCDs in bed Disposition: Likely discharge tomorrow pending tolerance to diet and GI clearance. Full Code. Visit type - Emergency Visit Emergency Visit: Yes ED Registration Date: 11/19/16 Care time: The patient presented to the Emergency Department on the above date and was hospitalized for further evaluation of their emergent condition. - New Patient This patient is new to me today: Yes Date on this admission: 01/06/17 - Critical Care Critical Care patient: No - Discharge Referral Referred to [facility] Med P.C.: No
[2016-11-22] MEDS: METRONIDAZOLE 500 MG PREMIXED 100 ML IVPB SCH ×3 (03:21→17:14)
[2016-11-22 08:45] LABS: BASOPHIL 0.3 % (0-2.0); MCH 28.4 pg (25.7-33.7); MCHC 33.8 g/dl (32.0-36.0); MEAN CELL VOLUME 84.2 fl (80-96); MEAN PLT VOLUME 7.9 fl (7.5-11.1); NEUTROPHILS 71.2 % (42.8-82.8); PLATELET COUNT 221 K/MM3 (134-434); RDW 13.8 % (11.6-15.6); WHITE BLOOD COUNT 6.4 K/mm3 (4.0-10.0)
[2016-11-22 09:07] LABS: ALBUMIN 3.6 g/dl (3.4-5.0); BILIRUBIN,DIRECT 0.3 mg/dL (0.0-0.2); BILIRUBIN,TOTAL 0.8 mg/dL (0.2-1.0); C-REACTIVE PROTEIN 5.5 MG/DL (0.00-0.3); CREATININE 0.6 mg/dL (0.55-1.02)
[2016-11-22] MEDS: PANTOPRAZOLE 40 MG TABLET (FP) PO SCH (09:31)
--- NOTE | 2016-11-22 10:12 | PN ---
Progress Note, Physician Chief Complaint: less pain History of Present Illness: feeling alot better. lfts improving. pain markedly decreased. - Current Medication List Current Medications: Active Medications Metronidazole (Flagyl 500mg Premixed Ivpb -) 100 mls @ 100 mls/hr IVPB Q8H-IV LAQUITA Last Admin: 11/22/16 09:31 Dose: 100 mls/hr Ondansetron HCl (Zofran Injection) 4 mg IVPB Q6H PRN PRN Reason: NAUSEA Last Admin: 11/20/16 16:56 Dose: 4 mg Oxycodone HCl (Roxicodone -) 5 mg PO Q6H PRN PRN Reason: PAIN Pantoprazole Sodium (Protonix -) 40 mg PO DAILY LAQUITA Last Admin: 11/22/16 09:31 Dose: 40 mg - Objective Vital Signs: Vital Signs Temperature 99.3 F 11/22/16 06:00 Pulse Rate 88 11/22/16 09:00 Respiratory Rate 18 11/22/16 09:00 Blood Pressure 112/70 11/22/16 09:00 O2 Sat by Pulse Oximetry (%) 96 11/22/16 09:00 Constitutional: Yes: No Distress, Calm Eyes: Yes: Conjunctiva Clear, EOM Intact HENT: Yes: Atraumatic, Normocephalic Neck: Yes: Supple, Trachea Midline Cardiovascular: Yes: Regular Rate and Rhythm Respiratory: Yes: Regular, CTA Bilaterally Gastrointestinal: Yes: Soft. No: Distention, Tenderness ...Rectal Exam: Yes: Deferred Genitourinary: No: CVA Tenderness - Left, CVA Tenderness - Right Breast(s): No: Gynecomastia, Nipple Inversion Musculoskeletal: No: Joint Stiffness, Joint Swelling Extremities: No: Calf Tenderness, Erythema Integumentary: No: Erythema, Rash Wound/Incision: Yes: Clean/Dry, Well Approximated Neurological: Yes: Alert, Oriented Psychiatric: Yes: Alert, Oriented Labs: CBC, BMP 11/22/16 08:20 11/22/16 08:20 INR, PTT INR 1.26 (0.82-1.09) H D 11/21/16 06:05 Problem List - Problems (1) Abdominal pain Code(s): R10.9 - UNSPECIFIED ABDOMINAL PAIN Qualifiers: Abdominal location: epigastric Qualified Code(s): R10.13 - Epigastric pain (2) Biliary acute pancreatitis Assessment/Plan: likely passed stone. likely can adv to regular diet clear from surgical standpoint for discharge if okay with GI if pain returns will likely need ERCP should f/u with GI as outpt? Code(s): K85.1 - BILIARY ACUTE PANCREATITIS * DO NOT USE * (3) Elevated liver enzymes Code(s): R74.8 - ABNORMAL LEVELS OF OTHER SERUM ENZYMES
[2016-11-22] MEDS ORDERED: DOCUSATE SODIUM 100 MG CAPSULE (FP) PO ONE (14:00)
--- NOTE | 2016-11-22 14:05 | DS ---
Physical Exam: SUBJECTIVE: Patient seen and examined. States her abdominal pain better. Denies any nausea/vomiting or diarrhea. She tolerated a regular low residue, low fiber diet. OBJECTIVE: Vital Signs Period Temp Pulse Resp BP Sys/Grace Pulse Ox Last 24 Hr 98 F-99.3 F 79-98 18-20 101-120/55-77 96 PHYSICAL EXAM GENERAL: The patient is awake, alert, and fully oriented, in no acute distress. HEAD: Normal with no signs of trauma. EYES: PERRL, extraocular movements intact, sclera anicteric, conjunctiva clear. No ptosis. ENT: Ears normal, nares patent, oropharynx clear without exudates, moist mucous membranes. NECK: Trachea midline, full range of motion, supple. LUNGS: Breath sounds equal, clear to auscultation bilaterally, no wheezes, no crackles, no accessory muscle use. HEART: Regular rate and rhythm, ABDOMEN: Soft, nontender, nondistended, normoactive bowel sounds, + LUQ 3/10 pain EXTREMITIES: 2+ pulses, warm, well-perfused, no edema. NEUROLOGICAL: Normal speech, gait not observed. PSYCH: Normal mood, normal affect. SKIN: Warm, dry, normal turgor, no rashes or lesions noted LABS Laboratory Results - last 24 hr 11/22/16 11/22/16 08:20 08:20 WBC 6.4 RBC 4.79 Hgb 13.6 Hct 40.3 MCV 84.2 MCHC 33.8 RDW 13.8 Plt Count 221 MPV 7.9 Neutrophils % 71.2 Lymphocytes % 19.9 Monocytes % 6.6 Eosinophils % 2.0 Basophils % 0.3 Sodium 142 Potassium 3.6 Chloride 103 Carbon Dioxide 27 Anion Gap 12 BUN 6 L D Creatinine 0.6 Random Glucose 94 D Calcium 9.0 Total Bilirubin 0.8 Direct Bilirubin 0.3 H D AST 95 H D ALT 843 H D Alkaline Phosphatase 269 H C-Reactive Protein 5.5 H D Total Protein 7.0 Albumin 3.6 Total Amylase 58 D Lipase 198 HOSPITAL COURSE: Date of Admission:11/19/16 Date of Discharge: 11/22/16 ASSESSMENT/PLAN: Patient is a 36 year old female who had a recent lap. cholecystectomy on [address] Rojas and was discharged. She presented to the ER on 11/19/2016 with complaints of nausea, vomiting, and epgiastric pain. She described the pain as sharp pressure that is constant, 6/10 in severity, and radiates to her back, relieved with pain meds. On this admission her labs revealed: AST/ALT (AST 1420-311, ALT 4384-4096), Amylase (280), Lipase (231>2820>925) On todays' exam, she states her pain is better, denies any nausea/vomiting. Tolerated her breakfast and lunch. Imaging: CT abdomen/pelvis 11/20/2016: s/p choleystectomy, no SBO GI: Abdominal pain - s/p lap. cholecystectomy Assessment/Plan: As per GI note, no stone in CBD AST 1420>95, ALT 1240>843, Lipase 231>193, Amylase 198 ERCP cancelled for now as per surgery, diet advanced to regular, low residue, low fiber She was cleared for a surgical standpoint, awaiting GI clearance if pain returns will likely need ERCP Will refer to GI as outpatient. Pulmonary Asthma - chronic Assessment/Plan: No in exacerbation F.E.N. Fluids: tolerating PO, fluids d/c Electrolytes: within normal limits Nutrition: low fiber, low residue diet Disposition: Discharge today, GI follow up as outpatient. Full Code. Discharge Summary Reason For Visit: ELEVATED LIVER ENZYMES/ABDOMINAL PAIN Current Active Problems Abdominal pain (Acute) Asthma (Acute) Biliary acute pancreatitis (Acute) DVT prophylaxis (Acute) Elevated liver enzymes (Acute) Condition: Stable - Instructions Referrals: Cornelio Smith MD [Staff Physician] - Disposition: HOME - Home Medications Comprehensive Discharge Medication List: Ambulatory Orders Ranitidine [Zantac -] 150 mg PO HS 11/13/16 Oxycodone HCl/Acetaminophen [Percocet 5-325 mg Tablet] 1 tab PO Q4H PRN #30 tablet MDD 6 11/14/16 This patient is new to me today: No Emergency Visit: Yes ED Registration Date: 11/19/16 Care time: The patient presented to the Emergency Department on the above date and was hospitalized for further evaluation of their emergent condition. Critical Care patient: No - Discharge Referral Referred to [facility] Med P.C.: Yes
[2016-11-22] MEDS: LACTATED RINGERS SOLUTION 1,000 ML IV SCH (14:20)
--- NOTE | 2016-11-22 16:06 | PN ---
GI Progress Note Subjective: Complained of pain after eating solid food this afternoon No vomiting - Objective Vital Signs: Vital Signs Temperature 98.2 F 11/22/16 14:09 Pulse Rate 78 11/22/16 14:09 Respiratory Rate 17 11/22/16 14:09 Blood Pressure 116/69 11/22/16 14:09 O2 Sat by Pulse Oximetry (%) 96 11/22/16 09:00 Constitutional: Calm Eyes: Yes: Sclera Icterus Cardiovascular: Yes: Regular Rate and Rhythm Respiratory: Yes: CTA Bilaterally Gastrointestinal Inspection: No: Distention, Scars (glued trochar scars) ...Auscultate: Yes: Normoactive Bowel Sounds ...Palpate: Yes: Tenderness (tenderness at trochar sites but also in mid abdomen between trochar sites) ...Percussion: No: Tympanitic Edema: No Neurological: Yes: Alert, Oriented Labs: CBC, BMP 11/22/16 08:20 11/22/16 08:20 INR, PTT INR 1.26 (0.82-1.09) H D 11/21/16 06:05 Hepatic Panel Total Bilirubin 0.8 mg/dL (0.2-1.0) 11/22/16 08:20 Direct Bilirubin 0.3 mg/dL (0.0-0.2) H D 11/22/16 08:20 AST 95 U/L (15-37) H D 11/22/16 08:20 ALT 843 U/L (12-78) H D 11/22/16 08:20 Alkaline Phosphatase 269 U/L (45-117) H 11/22/16 08:20 Albumin 3.6 g/dl (3.4-5.0) 11/22/16 08:20 Problem List - Problems (1) Biliary acute pancreatitis Assessment/Plan: Had pain after trial of low fat diet. Would continue to monitor how she tolrates her advanced diet. If continued pain may have to bring it back down to clear liquids. Also, would repeat liver chemistries to make sure liver chemistries haven't started rising again along with her pain after eating. Hepatitis A/B/C serologies were drawn Code(s): K85.1 - BILIARY ACUTE PANCREATITIS * DO NOT USE *
--- NOTE | 2016-11-22 16:55 | PN ---
Physical Exam: SUBJECTIVE: Patient seen and examined. As per pt, her abdominal pain has improved. Denies nausea or vomiting. Still having some intermittent LUQ pain/discomfort but improved since yesterday. Advanced to low residue, low fiber as per surgery. OBJECTIVE: Vital Signs Period Temp Pulse Resp BP Sys/Grace Pulse Ox Last 24 Hr 98 F-99.3 F 78-98 17-20 101-120/55-77 96 GENERAL: The patient is awake, alert, and fully oriented, in no acute distress. HEAD: Normal with no signs of trauma. EYES: PERRL, extraocular movements intact, sclera anicteric, conjunctiva clear. No ptosis. ENT: Ears normal, nares patent, oropharynx clear without exudates, moist mucous membranes. NECK: Trachea midline, full range of motion, supple. LUNGS: Breath sounds equal, clear to auscultation bilaterally, no wheezes, no crackles, no accessory muscle use. HEART: Regular rate and rhythm, ABDOMEN: Soft, nontender, nondistended, normoactive bowel sounds, + LUQ 3/10 pain EXTREMITIES: 2+ pulses, warm, well-perfused, no edema. NEUROLOGICAL: Normal speech, gait not observed. PSYCH: Normal mood, normal affect. SKIN: Warm, dry, normal turgor, no rashes or lesions noted Laboratory Results - last 24 hr 11/22/16 11/22/16 08:20 08:20 WBC 6.4 RBC 4.79 Hgb 13.6 Hct 40.3 MCV 84.2 MCHC 33.8 RDW 13.8 Plt Count 221 MPV 7.9 Neutrophils % 71.2 Lymphocytes % 19.9 Monocytes % 6.6 Eosinophils % 2.0 Basophils % 0.3 Sodium 142 Potassium 3.6 Chloride 103 Carbon Dioxide 27 Anion Gap 12 BUN 6 L D Creatinine 0.6 Random Glucose 94 D Calcium 9.0 Total Bilirubin 0.8 Direct Bilirubin 0.3 H D AST 95 H D ALT 843 H D Alkaline Phosphatase 269 H C-Reactive Protein 5.5 H D Total Protein 7.0 Albumin 3.6 Total Amylase 58 D Lipase 198 Active Medications Generic Name Dose Route Start Last Admin Trade Name Freq PRN Reason Stop Dose Admin Metronidazole 100 mls @ 100 mls/hr 11/20/16 18:00 11/22/16 09:31 Flagyl 500mg Premixed Ivpb - IVPB 100 mls/hr Q8H-IV LAQUITA Administration Ondansetron HCl 4 mg 11/19/16 00:59 11/20/16 16:56 Zofran Injection IVPB 4 mg Q6H PRN Administration NAUSEA Oxycodone HCl 5 mg 11/22/16 09:53 Roxicodone - PO Q6H PRN PAIN Pantoprazole Sodium 40 mg 11/19/16 10:00 11/22/16 09:31 Protonix - PO 40 mg DAILY LAQUITA Administration ASSESSMENT/PLAN: Patient is a 36 year old female who had a recent lap. cholecystectomy on [address] Rojas and was discharged. She presented to the ER on 11/19/2016 with complaints of nausea, vomiting, and epgiastric pain. She describes the pain as sharp pressure that is constant, 6/10 in severity, and radiates to her back, relieved with pain meds. She denies any nausea/vomiting or diarrhea. Her other history includes GERD, asthma, and tonsillectomy. On this admission her labs revealed: AST/ALT (AST 1420, ALT 1240), Amylase (280 ), Lipase (2820) Imaging: CT abdomen/pelvis 11/20/2016: s/p choleystectomy, no SBO GI: Abdominal pain - s/p lap. cholecystectomy on 11/14/2016 Assessment/Plan: As per GI note, MRCP revealed no stone in CBD ERCP cancelled for now, advance diet as tolerated and monitor Patient is still having LUQ abdominal pain, monitor for improvement of symptoms Advanced diet to regular: low residue, low fiber AST/ALT trending down, hepatitis panel ordered by GI Amylase 280>58, Lipase 2820 >198 On Flagyl q8 Nausea/Vomiting - resolved Assessment/Plan: Still having some abdominal discomfort after low residue diet Monitor for improvement Zofran as needed Pulmonary Asthma - chronic Assessment/Plan: Not in exacerbation Monitor F.E.N. Fluids: Tolerating PO, no IVF Electrolytes: within normal limits Nutrition: Regular,low residue,low fiber Prophylaxis: GI: Zofran, Protonix 40mg daily DVT: active ambulation, SCDs in bed Disposition: Likely discharge tomorrow pending tolerance to diet and GI clearance. Full Code. Visit type - Emergency Visit Emergency Visit: Yes ED Registration Date: 11/19/16 Care time: The patient presented to the Emergency Department on the above date and was hospitalized for further evaluation of their emergent condition. - New Patient This patient is new to me today: No - Critical Care Critical Care patient: No - Discharge Referral Referred to [facility] No
[2016-11-22] MEDS: oxyCODONE HCL 5 MG TABLET PO PRN ×2 (17:14→22:37)
[2016-11-23] MEDS: METRONIDAZOLE 500 MG PREMIXED 100 ML IVPB SCH ×3 (02:57→17:25)
[2016-11-23 07:44] LABS: BASOPHIL 0.3 % (0-2.0); EOSINOPHIL 2.9 % (0-4.5); MCH 28.4 pg (25.7-33.7); MCHC 33.4 g/dl (32.0-36.0); MEAN PLT VOLUME 8.1 fl (7.5-11.1); PLATELET COUNT 238 K/MM3 (134-434); RDW 13.6 % (11.6-15.6); WHITE BLOOD COUNT 6.4 K/mm3 (4.0-10.0)
[2016-11-23 08:19] LABS: ALBUMIN 3.8 g/dl (3.4-5.0); ANION GAP 10 (8-16); CALCIUM 8.9 mg/dL (8.5-10.1); CO2 27 mmol/L (21-32); GLUCOSE,RANDOM 95 mg/dL (74-106); MAGNESIUM 2.3 mg/dL (1.8-2.4)
[2016-11-23 08:23] LABS: ALK PHOS 254 U/L (45-117); BILIRUBIN,TOTAL 0.6 mg/dL (0.2-1.0); CREATININE 0.6 mg/dL (0.55-1.02); PHOSPHOROUS 3.5 mg/dL (2.5-4.9); SGOT/AST 47 U/L (15-37); SGPT/ALT 609 U/L (12-78); TOT PROT 7.3 g/dl (6.4-8.2)
[2016-11-23] MEDS: PANTOPRAZOLE 40 MG TABLET (FP) PO SCH (10:19)
--- NOTE | 2016-11-23 14:19 | PN ---
Progress Note, Physician Chief Complaint: less pain in LUQ History of Present Illness: LFTs better and so is LUQ postprandial pain. - Current Medication List Current Medications: Active Medications Metronidazole (Flagyl 500mg Premixed Ivpb -) 100 mls @ 100 mls/hr IVPB Q8H-IV LAQUITA Last Admin: 11/23/16 10:19 Dose: 100 mls/hr Ondansetron HCl (Zofran Injection) 4 mg IVPB Q6H PRN PRN Reason: NAUSEA Last Admin: 11/20/16 16:56 Dose: 4 mg Oxycodone HCl (Roxicodone -) 5 mg PO Q6H PRN PRN Reason: PAIN Last Admin: 11/22/16 22:37 Dose: 5 mg Pantoprazole Sodium (Protonix -) 40 mg PO DAILY LAQUITA Last Admin: 11/23/16 10:19 Dose: 40 mg - Objective Vital Signs: Vital Signs Temperature 98.1 F 11/23/16 06:00 Pulse Rate 85 11/23/16 06:00 Respiratory Rate 16 11/23/16 06:00 Blood Pressure 104/57 11/23/16 06:00 O2 Sat by Pulse Oximetry (%) 96 11/22/16 21:00 Gastrointestinal: Yes: Soft. No: Distention, Tenderness Labs: CBC, BMP 11/23/16 06:40 11/23/16 06:40 INR, PTT INR 1.26 (0.82-1.09) H D 11/21/16 06:05 Problem List - Problems (1) Abdominal pain Assessment/Plan: recommend d/c as pain and LFTS continue to improve albeit slowly. no indication for repeat imaging. clear from surgical standpoint for discharge home if pain is tolerable and improving. Code(s): R10.9 - UNSPECIFIED ABDOMINAL PAIN Qualifiers: Abdominal location: epigastric Qualified Code(s): R10.13 - Epigastric pain (2) Biliary acute pancreatitis Code(s): K85.1 - BILIARY ACUTE PANCREATITIS * DO NOT USE * (3) Elevated liver enzymes Code(s): R74.8 - ABNORMAL LEVELS OF OTHER SERUM ENZYMES
--- NOTE | 2016-11-23 17:34 | PN ---
Physical Exam: SUBJECTIVE: Patient seen and examined sitting on edge of bed. Mild discomfort after eating lunch, improved from yesterday. No BM x 6 days. OBJECTIVE: Vital Signs Period Temp Pulse Resp BP Sys/Grace Pulse Ox Last 24 Hr 97 F-98.4 F 70-88 16-18 102-106/57-74 96-96 GENERAL: The patient is awake, alert, and fully oriented, in no acute distress. HEAD: Normal with no signs of trauma. EYES: PERRL, extraocular movements intact, sclera anicteric, conjunctiva clear. No ptosis. LUNGS: Breath sounds equal, clear to auscultation bilaterally, no wheezes, no crackles, no accessory muscle use. HEART: Regular rate and rhythm, S1, S2 without murmur, rub or gallop. ABDOMEN: Soft, nontender, nondistended, normoactive bowel sounds, no guarding, no rebound EXTREMITIES: 2+ pulses, warm, well-perfused, no edema. NEUROLOGICAL: Cranial nerves II through XII grossly intact. Normal speech, moving all extremities. SKIN: Warm, dry, normal turgor, no rashes or lesions noted Laboratory Results - last 24 hr 11/23/16 11/23/16 06:40 06:40 WBC 6.4 RBC 5.05 Hgb 14.3 Hct 42.9 MCV 85.0 MCHC 33.4 RDW 13.6 Plt Count 238 MPV 8.1 Neutrophils % 61.0 Lymphocytes % 28.8 D Monocytes % 7.0 Eosinophils % 2.9 Basophils % 0.3 Sodium 141 Potassium 3.7 Chloride 104 Carbon Dioxide 27 Anion Gap 10 BUN 9 D Creatinine 0.6 Creat Clearance w eGFR > 60 Random Glucose 95 Calcium 8.9 Phosphorus 3.5 Magnesium 2.3 Total Bilirubin 0.6 D AST 47 H D ALT 609 H D Alkaline Phosphatase 254 H Total Protein 7.3 Albumin 3.8 Lipase 265 Active Medications Generic Name Dose Route Start Last Admin Trade Name Freq PRN Reason Stop Dose Admin Metronidazole 100 mls @ 100 mls/hr 11/20/16 18:00 11/23/16 17:25 Flagyl 500mg Premixed Ivpb - IVPB 100 mls/hr Q8H-IV LAQUITA Administration Ondansetron HCl 4 mg 11/19/16 00:59 11/20/16 16:56 Zofran Injection IVPB 4 mg Q6H PRN Administration NAUSEA Oxycodone HCl 5 mg 11/22/16 09:53 11/22/16 22:37 Roxicodone - PO 5 mg Q6H PRN Administration PAIN Pantoprazole Sodium 40 mg 11/19/16 10:00 11/23/16 10:19 Protonix - PO 40 mg DAILY LAQUITA Administration ASSESSMENT/PLAN 36 year-old woman s/p lap cholecystectomy on 11/14/2016. Admitted for biliary pancreatitis. Biliary pancreatitis --MRCP revealed no stone in CBD --LFTs trending down --better tolerating food today, only mild discomfort after lunch; early satiety --continue metronidazole --d/c oxycodone Asthma --stable Constipation --Miralax BID, colace F/E/N Fluids: PO intake adequate Electrolytes: replete as indicated Nutrition: low residue, low fiber DVT prophylaxis: SCDs, oob, ambulation Disposition: Likely discharge tomorrow pending tolerance to diet and GI clearance. Full Code. Visit type - Emergency Visit Emergency Visit: Yes ED Registration Date: 11/19/16 Care time: The patient presented to the Emergency Department on the above date and was hospitalized for further evaluation of their emergent condition. - New Patient This patient is new to me today: Yes Date on this admission: 11/23/16 - Critical Care Critical Care patient: No
--- NOTE | 2016-11-23 18:40 | PN ---
GI Progress Note Subjective: Overall Ms. Zamora states feeling better. No epigastric pain after eating. Some left sided abdominal pain that comes and goes, particularly after meals No BM as of yet - Objective Vital Signs: Vital Signs Temperature 97 F L 11/23/16 13:45 Pulse Rate 82 11/23/16 13:45 Respiratory Rate 16 11/23/16 13:45 Blood Pressure 106/74 11/23/16 13:45 O2 Sat by Pulse Oximetry (%) 96 11/23/16 09:00 Constitutional: Calm Eyes: No: Sclera Icterus Cardiovascular: Yes: Regular Rate and Rhythm Respiratory: Yes: CTA Bilaterally Gastrointestinal Inspection: Yes: Scars (glued trochar scars). No: Distention ...Auscultate: Yes: Normoactive Bowel Sounds ...Palpate: Yes: Tenderness (at trochar sites, improved from yesterday, no mid abdominal tenderness to palpation) ...Percussion: No: Tympanitic Edema: No Neurological: Yes: Alert, Oriented Labs: CBC, BMP 11/23/16 06:40 11/23/16 06:40 INR, PTT INR 1.26 (0.82-1.09) H D 11/21/16 06:05 Laboratory Tests 11/20/16 11/21/16 11/21/16 07:00 06:05 06:05 Total Bilirubin 4.1 H D 1.0 D 1.0 AST 1350 H 318 H D 311 H ALT 1850 H D 1241 H D 1269 H Alkaline Phosphatase 317 H D 322 H D 312 H Lipase 2820 H 925 H 11/22/16 11/23/16 08:20 06:40 Total Bilirubin 0.8 0.6 D AST 95 H D 47 H D ALT 843 H D 609 H D Alkaline Phosphatase 269 H 254 H Lipase 198 265 Laboratory Tests 11/22/16 15:15 Hepatitis A Ab Total Pending Hep Bs Antigen Pending Hep Bs Antibody Pending Hep B Core Total Ab Pending Hepatitis C Antibody Pending Assessment/Plan Suspected passed CBD stone with mild pancreatitis Clinically improved MiraLAX was ordered for her constipation Upon discharge will need follow-up in 1 week for LFTs. She can come to the office. She also does not have a PMD. I advised she speak with hospitalist regarding this and they would likely be able to arrange follow-up with one. Problem List - Problems (1) Biliary acute pancreatitis Code(s): K85.1 - BILIARY ACUTE PANCREATITIS * DO NOT USE *
[2016-11-23] MEDS: POLYETHYLENE GLYCOL 3350 119 GM BTL PO SCH ×2 (21:33→21:34)
[2016-11-23] MEDS ORDERED: POLYETHYLENE GLYCOL 3350 119 GM BTL PO SCH (22:00)
[2016-11-23] MEDS ORDERED: DOCUSATE SODIUM 100 MG CAPSULE (FP) PO SCH (22:00)
[2016-11-24] MEDS: METRONIDAZOLE 500 MG PREMIXED 100 ML IVPB SCH ×2 (03:00→10:47)
[2016-11-24 10:46] VITALS: TEMP 98.1
[2016-11-24] MEDS: POLYETHYLENE GLYCOL 3350 119 GM BTL PO SCH (10:47)
[2016-11-24] MEDS: PANTOPRAZOLE 40 MG TABLET (FP) PO SCH (10:47)
[2016-11-24 14:49] VITALS: BP 101/66; PULSE 74
--- NOTE | 2016-11-24 15:36 | PN ---
GI Progress Note Subjective: No acute events Had 2 BM's No left sided abdominal pain No N/V - Objective Vital Signs: Vital Signs Temperature 98.1 F 11/24/16 13:40 Pulse Rate 74 11/24/16 13:40 Respiratory Rate 18 11/24/16 13:40 Blood Pressure 101/66 11/24/16 13:40 O2 Sat by Pulse Oximetry (%) 97 11/24/16 11:00 Constitutional: Calm Eyes: No: Sclera Icterus Cardiovascular: Yes: Regular Rate and Rhythm Respiratory: Yes: CTA Bilaterally Gastrointestinal Inspection: No: Distention ...Auscultate: Yes: Normoactive Bowel Sounds ...Palpate: No: Tenderness Edema: No Neurological: Yes: Alert, Oriented Labs: CBC, BMP 11/23/16 06:40 11/23/16 06:40 INR, PTT INR 1.26 (0.82-1.09) H D 11/21/16 06:05 Hepatic Panel Total Bilirubin 0.6 mg/dL (0.2-1.0) D 11/23/16 06:40 Direct Bilirubin 0.3 mg/dL (0.0-0.2) H D 11/22/16 08:20 AST 47 U/L (15-37) H D 11/23/16 06:40 ALT 609 U/L (12-78) H D 11/23/16 06:40 Alkaline Phosphatase 254 U/L (45-117) H 11/23/16 06:40 Albumin 3.8 g/dl (3.4-5.0) 11/23/16 06:40 Laboratory Tests 11/22/16 15:15 Hepatitis A Ab Total Positive Hep Bs Antigen Negative Hep Bs Antibody Reactive Hep B Core Total Ab Negative Hepatitis C Antibody 0.2 (neg) Problem List - Problems (1) Biliary acute pancreatitis Assessment/Plan: Continued clinical improvement with improving LFTs No GI objection to D/C home. Advised Ms. Zamora to call the office and arrange follow-up in 1 week for repeat LFT's in office Code(s): K85.1 - BILIARY ACUTE PANCREATITIS * DO NOT USE *
--- NOTE | 2016-11-24 15:55 | DS ---
Physical Exam: SUBJECTIVE: Patient seen and examined OBJECTIVE: Vital Signs Period Temp Pulse Resp BP Sys/Grace Pulse Ox Last 24 Hr 97.7 F-98.4 F 68-92 16-20 90-110/57-72 95-97 PHYSICAL EXAM GENERAL: The patient is awake, alert, and fully oriented, in no acute distress. HEAD: Normal with no signs of trauma. EYES: PERRL, extraocular movements intact, sclera anicteric, conjunctiva clear. No ptosis. LUNGS: Breath sounds equal, clear to auscultation bilaterally, no wheezes, no crackles, no accessory muscle use. HEART: Regular rate and rhythm, S1, S2 without murmur, rub or gallop. ABDOMEN: Soft, nontender, nondistended, normoactive bowel sounds, no guarding, no rebound EXTREMITIES: 2+ pulses, warm, well-perfused, no edema. NEUROLOGICAL: Cranial nerves II through XII grossly intact. Normal speech, moving all extremities. SKIN: Warm, dry, normal turgor, no rashes or lesions noted LABS Laboratory Results - last 24 hr CBCD WBC 6.4 K/mm3 (4.0-10.0) 11/23/16 06:40 RBC 5.05 M/mm3 (3.60-5.2) 11/23/16 06:40 Hgb 14.3 GM/dL (10.7-15.3) 11/23/16 06:40 Hct 42.9 % (32.4-45.2) 11/23/16 06:40 MCV 85.0 fl (80-96) 11/23/16 06:40 MCHC 33.4 g/dl (32.0-36.0) 11/23/16 06:40 RDW 13.6 % (11.6-15.6) 11/23/16 06:40 Plt Count 238 K/MM3 (134-434) 11/23/16 06:40 MPV 8.1 fl (7.5-11.1) 11/23/16 06:40 CMP Sodium 141 mmol/L (136-145) 11/23/16 06:40 Potassium 3.7 mmol/L (3.5-5.1) 11/23/16 06:40 Chloride 104 mmol/L (98-107) 11/23/16 06:40 Carbon Dioxide 27 mmol/L (21-32) 11/23/16 06:40 Anion Gap 10 (8-16) 11/23/16 06:40 BUN 9 mg/dL (7-18) D 11/23/16 06:40 Creatinine 0.6 mg/dL (0.55-1.02) 11/23/16 06:40 Creat Clearance w eGFR > 60 (>60) 11/23/16 06:40 Calcium 8.9 mg/dL (8.5-10.1) 11/23/16 06:40 Total Bilirubin 0.6 mg/dL (0.2-1.0) D 11/23/16 06:40 AST 47 U/L (15-37) H D 11/23/16 06:40 ALT 609 U/L (12-78) H D 11/23/16 06:40 Alkaline Phosphatase 254 U/L (45-117) H 11/23/16 06:40 Total Protein 7.3 g/dl (6.4-8.2) 11/23/16 06:40 Albumin 3.8 g/dl (3.4-5.0) 11/23/16 06:40 11/22/16 15:15 Hepatitis A Ab Total Positive Hep Bs Antigen Negative Hep Bs Antibody Reactive Hep B Core Total Ab Negative Hepatitis C Antibody 0.2 HOSPITAL COURSE: Date of Admission:11/19/16 Date of Discharge: 11/24/16 36 year-old woman s/p lap cholecystectomy on 11/14/2016. Admitted for biliary pancreatitis. Biliary pancreatitis --MRCP revealed no stone in CBD; suspect stone had passed --LFTs trended down --diet was slowly advanced --treated with metronidazole x 5 days --outpatient follow up Asthma --stable Constipation --Miralax BID, colace Minutes to complete discharge: 35 Discharge Summary Reason For Visit: ELEVATED LIVER ENZYMES/ABDOMINAL PAIN Current Active Problems Abdominal pain (Acute) Asthma (Acute) Biliary acute pancreatitis (Acute) DVT prophylaxis (Acute) Elevated liver enzymes (Acute) Condition: Stable - Instructions Diet, Activity, Other Instructions: Several prescriptions have been sent to your pharmacy. One is for metronidazole. You should take this drug as directed and be sure to finish all the medication. Prescriptions for oxycodone, colace, and miralax have also been sent. It is important you follow up in Dr. Smith's office in one week. His contact information is enclosed. You have also been provided with contact information for a primary care provider in [place]. Return to the emergency department for any new or worsening symptoms. Referrals: Latisha Shah MD [Staff Physician] - 1 Week Cornelio Smith MD [Staff Physician] - 1 Week Disposition: HOME - Home Medications Comprehensive Discharge Medication List: Ambulatory Orders Ranitidine [Zantac -] 150 mg PO HS 11/13/16 Docusate Sodium [Colace -] 300 mg PO HS #1 bottle 11/24/16 Metronidazole 500 mg PO TID #21 tablet 11/24/16 Oxycodone HCl 5 mg PO Q6H #10 tablet MDD 4 11/24/16 Pantoprazole Sodium [Protonix] 40 mg PO DAILY #30 tablet. 11/24/16 Polyethylene Glycol 3350 [Miralax 119 gm Btl -] 17 gm PO BID #1 bottle 11/24/16 This patient is new to me today: No Emergency Visit: Yes ED Registration Date: 11/19/16 Care time: The patient presented to the Emergency Department on the above date and was hospitalized for further evaluation of their emergent condition. Critical Care patient: No - Discharge Referral Referred to [facility] No
[2016-11-25 00:07] LABS: HEP B SURFACE AB Reactive (.)
== END 2016-11-24 16:50 | disposition home or self-care (01) | DRG 282 ==
LOC: FER 21:37 → FM/S 11-19 01:18 → J5S 11-20 14:49
PROVIDERS: ADMIT Internal Medicine; ATTEND Nurse Practitioner Acute Care
DX: K85.10 Biliary acute pancreatitis without necrosis or infection (principal); J45.909 Unspecified asthma, uncomplicated; K21.9 Gastro-esophageal reflux disease without esophagitis; R74.8 Abnormal levels of other serum enzymes
CPT/HCPCS: 36415; 74020-TC; 74177-TC; 74181-TC; 80048; 80053; 80076; 81003; 81015; 82150; 82248; 83690; 83735; 84100; 84703; 85025; 85610; 86140; 86704; 86706; 86708; 87040; 87340; 93005; 99284-25

== ENCOUNTER 2017-06-13 08:57 | Emergency (ER) | payer OTHER ==
[2017-06-13 09:08] VITALS: BMI 33.2
--- NOTE | 2017-06-13 09:15 | PDOC ---
Attending Attestation - Medical Decision Making 06/13/17 10:[address] Pacheco. [phone]. 06/13/17 11:[address] Stephane Antoine. [phone] <Vero Be - Last Filed: 06/13/17 11:22> - Resident Resident Name: Clyde Germain - ED Attending Attestation I have performed the following: I have examined & evaluated the patient, The case was reviewed & discussed with the resident, I agree w/resident's findings & plan, Exceptions are as noted - HPI HPI: 06/13/17 10:09 37yo female with R hand numbness that is going up R arm - hx of carpel tunnel symptoms when and feels similar this time. Today with R facial numbness while driving. Also with samayoa and R lateral neck pain. No f/c. No meningeal signs. +tinnels sign. +phalens. NO ttp over radial head or ulnar gutter. FROM of UE. No leg complaints. Has been off balance recently. Pt has appt to see PCP and ortho for beginning of june. - Physicial Exam PE: 06/13/17 10:11 Gen: aaox3, appears uncomfortable Head: NC/AT HEENT: PERRL, EOMI, MMM Neck: no midline ttp, no step offs, +R paraspinal ttp Heart: +s1s2 reg Lungs: CTA b/l Abd: soft, nt/nd +bs Ext: No c/c/e, Muscle strength 5/5 ue and le, ambulates with an ataxic gait, normal finger grasp, +tinels, +phalens Neuro: cn ii-xii grossly intact, no facial droop, no slurred speech, muscle strength 5/5 UE and LE, normal finger to nose b/l, decreased sensation to RUE, normal sensation to R leg skin: no rashes - Medical Decision Making 06/13/17 10:19 a/p: 37yo female with intermittent samayoa and intermittent episodes of R arm numbness and tingling -head ct (doubt stroke given paraspinal ttp, hx of carpel tunnel and similar symptoms to carpel tunnel in past) -labs -ua -ucg -pain control -discuss with neuro - concern over abnl gait for poss MS given abnl neuro exam and off balance assoc with samayoa. 06/13/17 10:22 call placed to neurology - awaiting call back 06/13/17 17:13 re-eval: pt feeling better. no numbness 06/13/17 17:13 discussed lp results with change in pressure case discussed with dr. tadeo - will follow up with pt in the office. recommends starting pt on diamox 500mg bid <Ivon Munoz - Last Filed: 06/13/17 18:21> Discharge Disposition <Vero Be - Last Filed: 06/13/17 11:22> - Discharge Dispostion Last Admission D/C Date: 11/24/16 Admit: No - Transfer to Acute Care Facility Transfer comment: 06/13/17 17:21 I, Dr. Ivon Munoz, DO, attest that this document has been prepared under my direction and personally reviewed by me in its entirety. I further attest, that it accurately reflects all work, treatment, procedures and medical decision -making performed by me. <Ivon Munoz - Last Filed: 06/13/17 18:21> - Diagnosis Idiopathic intracranial hypertension, Paresthesia and pain of right extremity - Discharge Dispostion Disposition: HOME Condition at time of disposition: Stable - Prescriptions Prescriptions: Acetazolamide [Diamox -] 500 mg PO BID #60 tablet - Referrals Referrals: Srini Ortega MD [Staff Physician] - Stephane Antoine MD [Non Staff, Medical] - - Patient Instructions Additional Instructions: Please take all meds as prescribed. Please keep your appointment with ortho and your pmd as scheduled for next week. please follow up with Dr. Antoine - this week. - Post Discharge Activity Work/School Note: Back to Work Heart Score/ECG Review - ECG Intrepretation Comment:: 06/13/17 10:20 sinus at 64, nl axis, nl interval, t wave inversions III that are nonspecific, no acute changes <Ivon Munoz - Last Filed: 06/13/17 18:21>
--- NOTE | 2017-06-13 09:15 | PDOC ---
History of Present Illness <Esteban Holden - Last Filed: 06/13/17 15:11> - General History Source: Patient Exam Limitations: No Limitations - History of Present Illness Initial Comments: 06/13/17 09:16 The patient is a 37 year old female, with a significant past medical history of pseudoseizures (dx by neurologist at [facility]) and asthma, who presents to the emergency department with right arm and facial numbness. Patient states she began having these symptoms intermittently 2 weeks ago. She states that this morning around 8:05 am she began having the a pins and needles sensation that travelled up her arm, neck, and right sided face. She also endorses right facial heaviness, and arm weakness. She also endorses right sided headache, dizziness, and balance issues x2 weeks. 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 Patient denies fever, chills, slurred speech, blurred vision, chest pain, n/v/d/c, dysuria, frequency, urgency, and hematuria. Allergies: PCN, guaifenesin Past surgical history: cholecystectomy and tonsillectomy Social history: Denies smoking, alcohol, and drugs PMD - Currently does not have one 06/13/17 10:24 <Clyde Germain - Last Filed: 06/13/17 18:39> - General Chief Complaint: CVA/TIA Stated Complaint: RT SIDE NUMBNESS Time Seen by Provider: 06/13/17 09:13 Past History <Esteban Holden - Last Filed: 06/13/17 15:11> - Past Medical History Asthma: Yes GI Disorders: Yes (GERD) Seizures: Yes (pesudo seizure ) - Surgical History Cholecystectomy: Yes (11/14/16) Other Surgical History: 06/13/17 09:58 Tonsillectomy - Family Disease History Family Disease History: Heart Disease: Grandparents (maternal) - Reproductive History (#): 7 Para: 1 Therapeutic (s) & number: Yes (5) - Immunization History Immunization Up to Date: Yes - Suicide/Smoking/Psychosocial Hx Smoking Status: No Smoking History: Never smoked Have you smoked in the past 12 months: No Number of Cigarettes Smoked Daily: 0 Information on smoking cessation initiated: No Hx Alcohol Use: No Drug/Substance Use Hx: No Substance Use Type: None <Cylde Germain - Last Filed: 06/13/17 18:39> - Past Medical History Allergies/Adverse Reactions: Allergies Allergy/AdvReac Type Severity Reaction Status Date / Time amoxicillin [Amoxicillin] Allergy Swelling Verified 06/13/17 09:03 guaifenesin Allergy Verified 06/13/17 09:03 Penicillins Allergy Verified 06/13/17 09:03 ibuprofen [From Motrin] AdvReac Verified 06/13/17 09:03 Home Medications: Ambulatory Orders Ranitidine [Zantac -] 150 mg PO HS 11/13/16 Docusate Sodium [Colace -] 300 mg PO HS #1 bottle 11/24/16 Metronidazole 500 mg PO TID #21 tablet 11/24/16 Oxycodone HCl 5 mg PO Q6H #10 tablet MDD 4 11/24/16 Pantoprazole Sodium [Protonix] 40 mg PO DAILY #30 tablet. 11/24/16 Polyethylene Glycol 3350 [Miralax 119 gm Btl -] 17 gm PO BID #1 bottle 11/24/16 Acetazolamide [Diamox -] 500 mg PO BID #60 tablet 06/13/17 Review of Systems - Review of Systems Comments:: 06/13/17 09:16 GENERAL/CONSTITUTIONAL: No fever or chills. No weakness. HEAD, EYES, EARS, NOSE AND THROAT: No change in vision. No ear pain or discharge. No sore throat. +headache, + dizziness CARDIOVASCULAR: No chest pain or shortness of breath RESPIRATORY: No cough, wheezing, or hemoptysis. GASTROINTESTINAL: No nausea, vomiting, diarrhea or constipation. GENITOURINARY: No dysuria, frequency, or change in urination. MUSCULOSKELETAL: No joint or muscle swelling or pain. No neck or back pain. SKIN: No rash NEUROLOGIC: +headache, +numbness, No vertigo or loss of consciousness, ENDOCRINE: No increased thirst. No abnormal weight change HEMATOLOGIC/LYMPHATIC: No anemia, easy bleeding, or history of blood clots. ALLERGIC/IMMUNOLOGIC: No hives or skin allergy. <Clyde Germain - Last Filed: 06/13/17 18:39> *Physical Exam - Vital Signs Last Vital Signs Temp Pulse Resp BP Pulse Ox 97.9 F 65 18 97/60 99 06/13/17 11:49 06/13/17 11:49 06/13/17 11:49 06/13/17 11:49 06/13/17 11:49 <Esteban Holden - Last Filed: 06/13/17 15:11> - Vital Signs Last Vital Signs Temp Pulse Resp BP Pulse Ox 98.5 F 75 17 117/76 99 06/13/17 09:04 06/13/17 09:04 06/13/17 09:04 06/13/17 09:04 06/13/17 09:04 - Physical Exam Comments: 06/13/17 09:14 GENERAL: Awake, alert, and fully oriented, in no acute distress HEAD: No signs of trauma, normocephalic, atraumatic EYES: PERRLA, EOMI, sclera anicteric, conjunctiva clear ENT: Oropharynx clear without exudates. Moist mucosa NECK: Normal ROM, supple, no lymphadenopathy, JVD, or masses, +Paraspinal tenderness LUNGS: No distress, speaks full sentences, clear to auscultation bilaterally HEART: Regular rate and rhythm, normal S1 and S2, no murmurs, rubs or gallops, peripheral pulses normal and equal bilaterally. ABDOMEN: Soft, nontender, normoactive bowel sounds. No guarding, no rebound. No masses EXTREMITIES: Normal inspection, Normal range of motion, no edema. No clubbing or cyanosis. +Tinel sign NEUROLOGICAL: Cranial nerves II through XII grossly intact. Decreased sensation of right arm and hand, decreased sensation on right face, strength 5/5 bilaterally, 2+ reflexes bilaterally, Normal speech, no focal sensorimotor deficits, +ataxic gait SKIN: Warm, Dry, normal turgor, no rashes or lesions noted. <Clyde Germain - Last Filed: 06/13/17 18:39> Procedures - Lumbar Puncture Indication: Headache CT Scan: Yes Betadine Prep: Yes Position: Left lateral decubitus Site: L4-L51 Local Anesthesia: 1% Lidocaine with epi Lumbar Puncture Kit: Adult Opening Pressure(mmHg): 23 Closing Pressure(mmHg): 12 Traumatic Tap: No Clear Fluid: Yes Complications: No <Esteban Holden - Last Filed: 06/13/17 15:11> ED Treatment Course - LABORATORY CBC & Chemistry Diagram: 06/13/17 10:10 06/13/17 10:10 - ADDITIONAL ORDERS Additional order review: Laboratory Results 06/13/17 06/13/17 06/13/17 13:08 10:20 10:10 PT with INR 11.60 INR 1.05 Sodium 138 Potassium 4.2 Chloride 107 Carbon Dioxide 28 Anion Gap 3 L BUN 10 Creatinine 0.7 Creat Clearance w eGFR > 60 Random Glucose 92 Calcium 8.6 Total Bilirubin 0.7 AST 21 D ALT 40 D Alkaline Phosphatase 71 D Total Protein 7.5 Albumin 3.9 Urine Color Yellow Urine Appearance Slcloudy Urine pH 5.0 Urine Protein Negative Urine Glucose (UA) Negative Urine Ketones Negative Urine Blood Negative Urine Nitrite Negative Urine Bilirubin Negative Urine Urobilinogen Negative Urine HCG, Qual Negative 06/13/17 10:10 RBC 5.07 MCV 84.5 MCHC 33.7 RDW 14.1 MPV 8.1 Neutrophils % 56.2 Lymphocytes % 35.6 D Monocytes % 5.7 Eosinophils % 2.1 Basophils % 0.4 - Medications Given in the ED: ED Medications Discontinued Medications Generic Name Dose Route Start Last Admin Trade Name Rachelle PRN Reason Stop Dose Admin Acetaminophen 650 mg 06/13/17 10:00 06/13/17 10:17 Tylenol - PO 06/13/17 10:01 650 mg ONCE ONE Administration Metoclopramide HCl 10 mg 06/13/17 09:45 06/13/17 09:58 Reglan - PO 06/13/17 09:46 10 mg ONCE ONE Administration <Esteban Holden - Last Filed: 06/13/17 15:11> - LABORATORY CBC & Chemistry Diagram: 06/13/17 10:10 06/13/17 10:10 <Clyde Germain - Last Filed: 06/13/17 18:39> Medical Decision Making - Medical Decision Making 06/13/17 10:09 Assessment: 37 y.o. F with pmh of pseudoseizures and asthma presenting with right face and arm numbness. DDx: Carpal tunnel syndrome, Multiple Sclerosis, CVA (less likely) Plan: CBC, CMP, UA, Upreg, CT Head, Reglan, Tylenol 06/13/17 10:24 Call placed to Neurology. Awaiting return call 06/13/17 11:[address] Pacheco who recommends calling patient's neurologist. Call placed to Dr. Stephane Antoine. Awaiting return call. 06/13/17 11:[address] Antoine. Patient was last seen in 2012. Last MRI was negative. CT Head-No acute hemorrhage. Partially empty sella turcica and prominent optic nerve sheath complexes may be seen with idiopathic intracranial hypertension. Stable 2.0 x 1.5 cm arachnoid cyst in left middle cranial fossa with unchanged mild mass effect on the underlying left temporal convexity. No other masses or midline shift. 06/13/17 12:32 EKG- Normal Sinus rhythm, Normal axis, t wave inversion in III, 06/13/17 13:02 Patient agreeable for LP. PT/INR ordered. 06/13/17 15:49 LP performed, awaiting results 06/13/17 18:38 LP-- increased opening pressure. Patient stable for d/c. Will F/u with neurology <Clyde Germain - Last Filed: 06/13/17 18:39> *DC/Admit/Observation/Transfer <Esteban Holden - Last Filed: 06/13/17 15:11> <Clyde Germain - Last Filed: 06/13/17 18:39> Diagnosis at time of Disposition: Idiopathic intracranial hypertension, Paresthesia and pain of right extremity - Discharge Dispostion Disposition: HOME Condition at time of disposition: Stable - Prescriptions Prescriptions: Acetazolamide [Diamox -] 500 mg PO BID #60 tablet - Referrals Referrals: Srini Ortega MD [Staff Physician] - Stephane Antoine MD [Non Staff, Medical] - - Patient Instructions Additional Instructions: Please take all meds as prescribed. Please keep your appointment with ortho and your pmd as scheduled for next week. please follow up with Dr. Antoine - this week. - Post Discharge Activity Forms/Work/School Notes: Back to Work
[2017-06-13] MEDS ORDERED: METOCLOPRAMIDE HCL 10 MG TABLET (FP) PO ONE ×2 (09:45→09:55)
[2017-06-13] MEDS ORDERED: ACETAMINOPHEN 325 MG TABLET (FP) PO ONE (10:00)
[2017-06-13 10:14] LABS: BASOPHIL 0.4 % (0-2.0); EOSINOPHIL 2.1 % (0-4.5); MCH 28.5 pg (25.7-33.7); MCHC 33.7 g/dl (32.0-36.0); MEAN CELL VOLUME 84.5 fl (80-96); MEAN PLT VOLUME 8.1 fl (7.5-11.1); NEUTROPHILS 56.2 % (42.8-82.8); PLATELET COUNT 233 K/MM3 (134-434); RDW 14.1 % (11.6-15.6); WHITE BLOOD COUNT 6.4 K/mm3 (4.0-10.0)
[2017-06-13] MEDS ORDERED: ACETAMINOPHEN 325 MG TABLET (FP) ONE (10:14)
[2017-06-13 10:26] LABS: URINE APPEARANCE SLCLOUDY; URINE BILIRUBIN NEGATIVE (NEGATIVE); URINE BLOOD NEGATIVE (NEGATIVE); URINE COLOR YELLOW; URINE GLUCOSE (UA) NEGATIVE (NEGATIVE); URINE KETONE NEGATIVE (NEGATIVE); URINE LEUK ESTERASE NEGATIVE (NEGATIVE); URINE NITRITE NEGATIVE (NEGATIVE); URINE PROTEIN NEGATIVE (NEGATIVE); URINE UROBILINOGEN NEGATIVE mg/dL (0.2-1.0)
[2017-06-13 10:47] LABS: ALBUMIN 3.9 g/dl (3.4-5.0); ANION GAP 3 (8-16); CALCIUM 8.6 mg/dL (8.5-10.1); CO2 28 mmol/L (21-32); CREATININE 0.7 mg/dL (0.55-1.02); GLUCOSE,RANDOM 92 mg/dL (74-106); SGPT/ALT 40 U/L (12-78)
[2017-06-13 10:49] LABS: ALK PHOS 71 U/L (45-117); BILIRUBIN,TOTAL 0.7 mg/dL (0.2-1.0); TOT PROT 7.5 g/dl (6.4-8.2)
[2017-06-13 11:46] LABS: SGOT/AST 21 U/L (15-37)
--- NOTE | 2017-06-13 11:52 | EKG ---
Test Reason : Blood Pressure : / mmHG Vent. Rate : 064 BPM Atrial Rate : 064 BPM P-R Int : 138 ms QRS Dur : 082 ms QT Int : 406 ms P-R-T Axes : 004 008 006 degrees QTc Int : 418 ms NORMAL SINUS RHYTHM NON DIAGONSTIC Q WAVE IN III AND aVF ATYPICAL R PROGRESSION IN V3 WHEN COMPARED WITH ECG OF 18-NOV-2016 22:00, NO MAJOR CHANGES SEEN. REPEAT EKG IF CLINICALLY INDICATED Confirmed by DAMIAN SANCHEZ MD ([id number]) on 06/13/2017 11:51:56 AM Referred By: Confirmed By:DAMIAN SANCHEZ MD
[2017-06-13 13:31] LABS: INR 1.05 (0.82-1.09); PROTHROMBIN TIME (PATIENT) 11.6 SEC (9.98-11.88)
[2017-06-13] MEDS ORDERED: LIDOCAINE HCL 1%, 10 MG/ML (20ML VIAL) ONE (14:56)
[2017-06-13] MEDS ORDERED: acetaZOLAMIDE 250 MG TABLET PO ONE (16:12)
[2017-06-13 17:27] LABS: CSF APPEARANCE SL.CLOUDY; CSF COLOR PINK; CSF RBC 1651
[2017-06-13 17:28] LABS: CSF APPEARANCE CLEAR; CSF COLOR COLORLESS; CSF RBC 14
[2017-06-13 17:31] VITALS: BP 100/54; PULSE 72; TEMP 98.1
[2017-06-13 17:59] LABS: GLUCOSE,CSF 54 mg/dL (50-80)
== END 2017-06-13 18:39 | disposition home or self-care (01) ==
LOC: JER 08:57
DX: G93.2 Benign intracranial hypertension (principal); R20.2 Paresthesia of skin; Z86.73 Personal history of transient ischemic attack (TIA), and cerebral infarction without residual deficits; K21.9 Gastro-esophageal reflux disease without esophagitis; J45.909 Unspecified asthma, uncomplicated
CPT/HCPCS: 36415; 70450-TC; 80053; 81003; 82945; 84157; 84703; 85025; 85610; 87070; 87205; 89050; 93005; 93010; 99284-25

== ENCOUNTER 2023-09-15 15:38 | Emergency (ER) | payer OTHER ==
[2023-09-15 16:18] VITALS: BP 102/71; PULSE 63; RESP 18; TEMP 97.8; BMI 29.9
[2023-09-15 17:21] LABS: PH,URINE 6.5 (5.0-8.0); URINE APPEARANCE CLEAR; URINE BILIRUBIN NEGATIVE (NEGATIVE); URINE COLOR YELLOW; URINE GLUCOSE (UA) NEGATIVE (NEGATIVE); URINE KETONE NEGATIVE (NEGATIVE); URINE LEUK ESTERASE NEGATIVE (NEGATIVE); URINE NITRITE NEGATIVE (NEGATIVE); URINE PROTEIN NEGATIVE (NEGATIVE)
== END 2023-09-15 18:57 | disposition home or self-care (01) ==
LOC: JERFT 15:38
DX: R30.0 Dysuria (principal); R39.11 Hesitancy of micturition; Z20.822 Contact with and (suspected) exposure to COVID-19
CPT/HCPCS: 36415; 81003; 84703; 87070; 87086; 87205; 87491; 87591; 87661; 99283-25